=== PATIENT | male | born 1960 | race Caucasian/White ===

== ENCOUNTER 2023-01-18 11:01 | Inpatient (IN) | payer OTHER ==
[2023-01-18] MEDS ORDERED: VANCOMYCIN IV PER PHARMACY 1 EACH MISC MISCELLANE PRN (11:33)
[2023-01-18] MEDS ORDERED: SODIUM CHLORIDE 0.9% 1,000 ML IV STA (11:34)
[2023-01-18] MEDS ORDERED: HYDROmorphone 0.5 MG/0.5 ML SYRINGE IVP STA (11:34)
[2023-01-18] MEDS ORDERED: KETOROLAC 15 MG/ML 1 ML VIAL IVP STA (11:34)
[2023-01-18] MEDS ORDERED: CEFEPIME 2 GM in SODIUM CHLORIDE 0.9% 100 ML IVPB SCH (12:00)
[2023-01-18] MEDS ORDERED: VANCOMYCIN 1,250 MG in SODIUM CHLORIDE 0.9% 250 ML IVPB ONE (12:00)
[2023-01-18 12:20] LABS: HCT 31.5 % (39.0-53.0); HGB 10.6 gm/dL (13.0-17.5); MCH 26.1 pg (25.0-35.0); MCHC 33.8 g/dL (31.0-37.0); MCV 77.1 fL (80.0-100.0); Mean Platelet Volume 6.9; Microcytosis Slight; Platelet Count 387 k/uL (150-450); RBC 4.08 m/uL (4.30-5.90); RDW 14.6 % (11.5-15.5); WBC 26.1 k/uL (3.8-10.6)
--- NOTE | 2023-01-18 12:20 | ED ---
Extremity Problem HPI - General Chief complaint: Extremity Injury, Lower Stated complaint: Left leg pain Time Seen by Provider: 01/18/23 11:18 Source: patient, RN notes reviewed Mode of arrival: wheelchair Limitations: no limitations - History of Present Illness Initial comments: This is a 62-year-old male who presents to the emergency department for left leg pain and swelling. Patient reports increasing pain and redness to the left leg, starting in the knee, for about 1.5 weeks. On 01/16 he went to [facility]. States that he was found to have a very elevated white blood cell count and very elevated inflammatory markers. He was advised that he should be transferred to another facility for admission and IV antibiotics. However, he w anted to try this on an outpatient basis first. He was started on Keflex and clindamycin, and has taken about 1.5 doses of these, however this continues to get worse and he is now having severe pain and drainage. States that he has had blisters develop on the knee that are now opening up and draining. Denies any fevers or chills. MD Complaint: extremity pain, extremity swelling - Related Data Home Medications Medication Instructions Recorded Confirmed Cephalexin [Keflex] 500 mg PO Q6H 01/18/23 01/18/23 carvediloL [Coreg] 12.5 mg PO BID 01/18/23 01/18/23 clindamycin HCL 300 mg PO Q6H 01/18/23 01/18/23 lisinopriL [Zestril] 20 mg PO DAILY 01/18/23 01/18/23 Allergies Allergy/AdvReac Type Severity Reaction Status Date / Time Sulfa (Sulfonamide Allergy Dyspnea Verified 01/18/23 13:45 Antibiotics) Review of Systems ROS Statement: Those systems with pertinent positive or pertinent negative responses have been documented in the HPI. ROS Other: All systems not noted in ROS Statement are negative. Past Medical History Past Medical History: CVA/TIA, Hypertension History of Any Multi-Drug Resistant Organisms: MRSA Additional Past Surgical History / Comment(s): torn acl left. Past Psychological History: No Psychological Hx Reported Smoking Status: Current every day smoker Past Alcohol Use History: None Reported Past Drug Use History: Marijuana General Exam Limitations: no limitations General appearance: alert, in no apparent distress Head exam: Present: atraumatic, normocephalic, normal inspection Respiratory exam: Present: normal lung sounds bilaterally. Absent: respiratory distress, wheezes, rales, rhonchi, stridor Cardiovascular Exam: Present: regular rate, normal rhythm, normal heart sounds. Absent: systolic murmur, diastolic murmur, rubs, gallop, clicks Extremities exam: Present: other (Diffuse erythema, tenderness, and swelling from the left knee spreading distally. There are several blisters over the left knee, some of which have opened up and started draining. Full ROM.) Neurological exam: Present: alert, oriented X3, CN II-XII intact Psychiatric exam: Present: normal affect, normal mood Skin exam: Present: warm, dry, intact, normal color. Absent: rash Course Vital Signs 01/18/23 01/18/23 01/18/23 11:08 13:11 13:13 Temperature 98 F Pulse Rate 80 93 Pulse Rate [ Right Pulse Oximetery] Respiratory 18 18 Rate Blood Pressure 129/66 109/76 Blood Pressure [Right Arm Supine] O2 Sat by Pulse 98 97 98 Oximetry 01/18/23 01/18/23 01/18/23 13:20 13:28 13:30 Temperature Pulse Rate 135 H 165 H 141 H Pulse Rate [ Right Pulse Oximetery] Respiratory 16 18 16 Rate Blood Pressure 109/76 110/72 109/76 Blood Pressure [Right Arm Supine] O2 Sat by Pulse 96 98 84 L Oximetry 01/18/23 01/18/23 01/18/23 13:40 13:50 14:00 Temperature Pulse Rate 144 H 149 H 129 H Pulse Rate [ Right Pulse Oximetery] Respiratory 18 16 18 Rate Blood Pressure 99/71 99/71 115/79 Blood Pressure [Right Arm Supine] O2 Sat by Pulse 83 L Oximetry 01/18/23 01/18/23 01/18/23 14:10 14:20 14:30 Temperature Pulse Rate 174 H 168 H 166 H Pulse Rate [ Right Pulse Oximetery] Respiratory 18 18 16 Rate Blood Pressure 138/83 129/80 129/80 Blood Pressure [Right Arm Supine] O2 Sat by Pulse 85 L 93 L 100 Oximetry 01/18/23 01/18/23 01/18/23 14:40 14:50 15:00 Temperature Pulse Rate 145 H 135 H 128 H Pulse Rate [ Right Pulse Oximetery] Respiratory 18 16 16 Rate Blood Pressure 138/79 138/79 Blood Pressure [Right Arm Supine] O2 Sat by Pulse 99 99 100 Oximetry 01/18/23 01/18/23 16:00 16:05 Temperature 97.6 F Pulse Rate 130 H Pulse Rate [ 110 H Right Pulse Oximetery] Respiratory 18 17 Rate Blood Pressure 127/68 Blood Pressure 106/85 [Right Arm Supine] O2 Sat by Pulse 99 99 Oximetry Medical Decision Making - Medical Decision Making This is a 62-year-old male who presents to the emergency department for left leg pain. Was pt. sent in by a medical professional or institution? @ -No Did you speak to anyone other than the patient for history? @ -No Did you review nursing and triage notes? @ -Yes, and I agree, it is accurate with regards to the patient's symptoms. Were old charts reviewed? @ -Yes, records from [facility] on 01/16 indicating that they attempted an arthrocentesis, but were unsuccessful despite multiple attempts. Differential Diagnosis? @ -Differential Leg Pain: Leg fracture, leg sprain, DVT, PVD, arterial insufficiency, iliac artery aneurysm, cellulitis, compartment syndrome, tendinopathy, nerve entrapment, piriformis syndrome, osteoarthritis, rhabdomyolysis, myositis, cramping from an electrolyte imbalance, this is not meant to be an all inclusive list. EKG interpreted by me (3pts min.)? @ -EKG interpreted by me demonstrating the following: Atrial fibrillation with rapid ventricular response. Ventricular rate 151 bpm, QRS duration 158 ms, QTC 421 ms. X-rays interpreted by me (1pt min.)? @ -X-ray of the left knee and tib-fib obtained. My interpretation identifies soft tissue swelling. CT interpreted by me (1pt min.)? @ -Not obtained U/S interpreted by me (1pt. min.)? @ -Not obtained What testing was considered but not performed? (CT, X-rays, U/S, labs)? Why? @ -None What meds were considered but not given? Why? @ -None Did you discuss the management of the patient with other professionals? @ -Yes, Dr. Jerez, who accepts the patient for admission. Did you reconcile home meds? @ -Yes Was smoking cessation discussed for >3mins.? @ -I discussed smoking cessation for greater than 3 minutes. The risk of smoking were discussed with the patient including but not limited to risks of cancer, stroke, coronary artery disease and COPD. Also discussed with patient were multiple methods of quitting smoking. Lastly we discussed the financial cost of smoking. Was critical care preformed (if so, how long)? @ -Yes, >35 minutes Were there social determinants of health that impacted care today? How? (Homelessness, low income, unemployed, alcoholism, drug addiction, transportation, low edu. Level, literacy, decrease access to med. care, group home, rehab)? @ -No Was there de-escalation of care discussed even if they declined? (Discuss DNR or withdrawal of care, Hospice)? @ -No What co-morbidities impacted this encounter? (DM, HTN, Smoking, COPD, CAD, Cancer, CVA, Hep., AIDS, mental health diagnosis, sleep apnea, morbid obesity)? @ -HTN, smoking Was patient admitted / discharged? @ -Admitted. Lab work obtained revealing leukocytosis with a white blood cell count of 26.1. CRP elevated at 34.9. X-ray of the left knee and tib-fib obtained revealing soft tissue swelling without any subcutaneous gas formation. Patient did meet septic criteria at 1311 when his heart rate reached 93 beats per minute. He was given a liter bolus of IV fluids per 30-40 mL/kg requirement and started on maintenance fluids at 130 mL/hr. Blood and wound cultures were obtained and the patient was started on IV vancomycin and cefepime. While hooked up to the resident doctor, he started to become tachycardic, with heart rate averaging in in the 140-160s. EKG was obtained and the patient was found to be in atrial fibrillation. Patient has no history of atrial fibrillation. He did not experience any chest pain, palpitations, or shortness of breath. States that he did have a stroke around [id number] but they never determined why. Not currently on any blood thinners. States that he does have a resident doctor implanted, which is simply to monitor his heart rate, however he has not been told of any irregularities associated with this. He was started on a cardizem and heparin drip for the atrial fibrillation with RVR. Patient admitted to medicine for further management of LLE cellulitis, sepsis, and new onset atrial fibrillation. Consults placed for orthopedics, infectious disease, and cardiol ogy. Dr. Andrade did call us to request an arthrocentesis. This was discussed with ED attending, Dr. Brooks. He evaluated the patient and did not feel an area that could be drained. The patient also has overlying wounds which is a contraindication. Patient also exhibited full ROM, making joint involvement less likely. On review of records obtained from [place] on 01/16, they attempted an arthrocentesis, however it was unsuccessful. We thus avoided any procedures at this time and will leave this to the discretion of orthopedics. Undiagnosed new problem with uncertain prognosis? @ -None Drug Therapy requiring intensive monitoring for toxicity (Heparin, Nitro, Insulin, Cardizem)? @ -Cardizem and heparin Were any procedures done? @ -None Diagnosis/symptom? @ -Left lower extremity cellulitis, sepsis, new onset atrial fibrillation Acute, or Chronic, or Acute on Chronic? @ -Acute Uncomplicated (without systemic symptoms) or Complicated (systemic symptoms)? @ -Complicated Side effects of treatment? @ -None Exacerbation, Progression, or Severe Exacerbation] @ -Not applicable Poses a threat to life or bodily function? @ -Yes This case was discussed in detail with the attending ED physician, Dr. Maradiaga. Presentation, findings, and treatment plan discussed in detail as well. - Lab Data Result diagrams: 01/18/23 11:45 01/18/23 11:45 Lab Results 01/18/23 01/18/23 01/18/23 Range/Units 11:45 11:45 11:45 WBC 26.1 H (3.8-10.6) k/uL RBC 4.08 L (4.30-5.90) m/uL Hgb 10.6 L (13.0-17.5) gm/dL Hct 31.5 L (39.0-53.0) % MCV 77.1 L (80.0-100.0) fL MCH 26.1 (25.0-35.0) pg MCHC 33.8 (31.0-37.0) g/dL RDW 14.6 (11.5-15.5) % Plt Count 387 (150-450) k/uL MPV 6.9 Neutrophils % (Manual) 89 % Band Neuts % (Manual) 1 % Lymphocytes % (Manual) 4 % Monocytes % (Manual) 4 % Eosinophils % (Manual) 2 % Neutrophils # (Manual) 23.40 H (1.3-7.7) k/uL Lymphocytes # (Manual) 1.04 (1.0-4.8) k/uL Monocytes # (Manual) 1.04 H (0-1.0) k/uL Eosinophils # (Manual) 0.52 (0-0.7) k/uL Nucleated RBCs 0 (0-0) /100 WBC Manual Slide Review Performed Microcytosis Slight Sodium 137 (137-145) mmol/L Potassium 3.3 L (3.5-5.1) mmol/L Chloride 106 (98-107) mmol/L Carbon Dioxide 20 L (22-30) mmol/L Anion Gap 11 mmol/L BUN 31 H (9-20) mg/dL Creatinine 1.87 H (0.66-1.25) mg/dL Est GFR (CKD-EPI)AfAm 43 (>60 ml/min/1.73 sqM) Est GFR (CKD-EPI)NonAf 38 (>60 ml/min/1.73 sqM) Glucose 105 H (74-99) mg/dL Plasma Lactic Acid Rj 1.1 (0.7-2.0) mmol/L Calcium 8.2 L (8.4-10.2) mg/dL Total Bilirubin 0.5 (0.2-1.3) mg/dL AST 24 (17-59) U/L ALT 29 (4-49) U/L Alkaline Phosphatase 171 H (38-126) U/L C-Reactive Protein 34.9 H (<1.0) mg/dL Total Protein 4.9 L (6.3-8.2) g/dL Albumin 2.6 L (3.5-5.0) g/dL TSH (0.465-4.680) mIU/L 01/18/23 Range/Units 11:45 WBC (3.8-10.6) k/uL RBC (4.30-5.90) m/uL Hgb (13.0-17.5) gm/dL Hct (39.0-53.0) % MCV (80.0-100.0) fL MCH (25.0-35.0) pg MCHC (31.0-37.0) g/dL RDW (11.5-15.5) % Plt Count (150-450) k/uL MPV Neutrophils % (Manual) % Band Neuts % (Manual) % Lymphocytes % (Manual) % Monocytes % (Manual) % Eosinophils % (Manual) % Neutrophils # (Manual) (1.3-7.7) k/uL Lymphocytes # (Manual) (1.0-4.8) k/uL Monocytes # (Manual) (0-1.0) k/uL Eosinophils # (Manual) (0-0.7) k/uL Nucleated RBCs (0-0) /100 WBC Manual Slide Review Microcytosis Sodium (137-145) mmol/L Potassium (3.5-5.1) mmol/L Chloride (98-107) mmol/L Carbon Dioxide (22-30) mmol/L Anion Gap mmol/L BUN (9-20) mg/dL Creatinine (0.66-1.25) mg/dL Est GFR (CKD-EPI)AfAm (>60 ml/min/1.73 sqM) Est GFR (CKD-EPI)NonAf (>60 ml/min/1.73 sqM) Glucose (74-99) mg/dL Plasma Lactic Acid Rj (0.7-2.0) mmol/L Calcium (8.4-10.2) mg/dL Total Bilirubin (0.2-1.3) mg/dL AST (17-59) U/L ALT (4-49) U/L Alkaline Phosphatase (38-126) U/L C-Reactive Protein (<1.0) mg/dL Total Protein (6.3-8.2) g/dL Albumin (3.5-5.0) g/dL TSH 1.360 (0.465-4.680) mIU/L - Radiology Data Radiology results: report reviewed, image reviewed Disposition Clinical Impression: Left leg cellulitis, Sepsis, New onset atrial fibrillation, Nicotine dependence Disposition: ADMITTED IP TO THIS HOSP
[2023-01-18 12:28] LABS: ALT 29 U/L (4-49); AST 24 U/L (17-59); African American GFR (CKD) 43 (>60 ml/min/1.73 sqM); Albumin 2.6 g/dL (3.5-5.0); Alkaline Phosphatase 171 U/L (38-126); Anion Gap 11 mmol/L; Blood Urea Nitrogen 31 mg/dL (9-20); Calcium 8.2 mg/dL (8.4-10.2); Carbon Dioxide 20 mmol/L (22-30); Chloride 106 mmol/L (98-107); Glucose 105 mg/dL (74-99); Non-African American GFR(CKD) 38 (>60 ml/min/1.73 sqM); Potassium 3.3 mmol/L (3.5-5.1); Sodium 137 mmol/L (137-145); Total Bilirubin 0.5 mg/dL (0.2-1.3); Total Protein 4.9 g/dL (6.3-8.2)
--- NOTE | 2023-01-18 12:45 | XR ---
EXAMINATION TYPE: XR tibia fibula LT, XR knee complete LT DATE OF EXAM: 01/18/2023 12:30 PM CLINICAL INDICATION:Male, 62 years old with history of Pain, redness, swelling; COMPARISON: None TECHNIQUE: XR tibia fibula LT, XR knee complete LT; was examined in AP and lateral projections. An a dditional oblique view of the knee. FINDINGS: No evidence of any acute osseous pathology or joint dislocation. Severe degeneration change s of the knee with joint space narrowing with deformity to the medial femoral condyle and tibial plat eau. There is osteophyte formation. There is soft tissue edema in the prepatellar space. IMPRESSION: 1. No evidence of acute fracture. 2. Soft tissue swelling or prepatellar space of the correlate for cellulitis. 3. Severe end-stage left knee osteophytosis.
[2023-01-18 13:08] LABS: C Reactive Protein 34.9 mg/dL (<1.0)
[2023-01-18 13:19] LABS: Band Neutrophils % 1 %; Eosinophils # (M) 0.52 k/uL (0-0.7); Lymphocytes # (M) 1.04 k/uL (1.0-4.8); Monocytes # (M) 1.04 k/uL (0-1.0); Neutrophils % (M) 89 %; Nucleated Red Blood Cells 0 /100 WBC (0-0); Total Cells Counted 100
[2023-01-18] MEDS ORDERED: DILTIAZEM DRIP BOLUS FROM BAG 1 MG SOLN IV ONE (13:36)
[2023-01-18] MEDS: SODIUM CHLORIDE 0.9% 500 ML 500 ML IV SCH ×2 (13:54→14:38)
[2023-01-18] MEDS: SODIUM CHLORIDE 0.9% 1,000 ML IV SCH ×2 (13:54→21:54)
[2023-01-18] MEDS: DILTIAZEM 125 MG in SODIUM CHLORIDE 0.9% 100 ML IV SCH (13:55)
[2023-01-18] MEDS ORDERED: HEPARIN SODIUM 1,000 UN/ML (10ML VL) IV ONE (13:57)
[2023-01-18] MEDS ORDERED: POTASSIUM CHLORIDE ER 20 MEQ TAB.ER PO STA (13:58)
[2023-01-18 14:12] LABS: INR 0.9 (<1.2); Partial Thromboplastin Time 30.7 sec (22.0-30.0); Prothrombin Time 9.8 sec (10.0-12.5)
[2023-01-18] MEDS ORDERED: ONDANSETRON 4 MG/2 ML VIAL IVP PRN (14:12)
[2023-01-18] MEDS ORDERED: NALOXONE 0.4 MG/ML 1 ML VIAL IV PRN (14:12)
[2023-01-18] MEDS: HEPARIN SOD,PORK IN 0.45% NACL 25,000 UNIT in 0.45% NACL 1 250ML.BAG IV SCH (14:33)
--- NOTE | 2023-01-18 14:41 | P.HPIM ---
History of Present Illness H&P Date: 01/18/23 History of Presenting Illness: Patient is a very pleasant 62-year-old male with a past medical history of hypertension, hyperlipidemia, multiple CVAs with no residual deficits followed by loop recorder placement in 2011, and nicotine dependence. Patient presented to the emergency department secondary to left lower extremity pain, swelling, and concerns of infection. Patient reports initially he began experiencing swelling to his left knee and lower extremity nearly 2 weeks ago and that this slowly but progressively worsened. He reports initially he just passed it off as he knows he has bad arthritis in that knee and is currently under evaluation for a left total knee replacement. Pt's at bedside also reports pt has a history of MRSSA infection in that same knee. Patient states he attempted to make an appointment with his PCP but his appointment was rescheduled because his insurance changed and so did his primary care provider without his knowledge. Patient reports the pain and swelling progressively worsened so he went to [facility] on 01/16/23 and was told that he had a bad infection with an elevated white blood cell count and inflammatory markers and wanted to transfer patient to our facility for admission and IV antibiotics but patient stated he declined and wanted to try treatment at home. Therefore patient was discharged home on clindamycin and Keflex and reports taking medications as prescribed but last night developed worsening discoloration and formation of large blisters. Patient states this morning these blisters began to rupture and have drainage and pain and swelling worsens so he came to our emergency department for evaluation. Patient denied having any fevers, chills, diaphoresis, chest pain, palpitations, shortness of breath, nausea, vomiting, or experiencing any numbness/tingling/weakness in his extremities. Patient denies history of DVT or PE. Patient denies history of atrial fibrillation, having any cardiac history or any stents in his heart. He reports loop recorder was placed secondary to recurrent strokes of unknown cause. Upon arrival to our facility patient's initial set of vitals were as follows blood pressure 129/66, heart rate 80, respiratory rate 18, temp 98.0F, SpO2 of 90% on room air. Shortly after arrival patient became tachycardic and was found to be in new-onset atrial fibrillation with RVR. EKG was completed showing atrial fibrillation with RVR at [address] depression in inferior lateral leads and right bundle branch block upon personal review and interpretation. No previous EKGs available for comparison. Chest x-ray completed negative for acute cardiopulmonary process. Labs completed and reviewed showing microcytic anemia with hemoglobin of 10.6 and severe leukocytosis with left shift with WBC count of 26.1, neutrophils of 23.4, and monocytes of 1.04. Coagulation profile showing low PT of 9.8 and elevated PTT of 30.7. BMP revealing hypokalemia with potassium of 3.3, hypocarbia with bicarb of 20, and elevated renal function with BUN of 31, creatinine 1.87, and GFR of 38 with unknown baseline levels. Liver profile showing elevated alkaline phosphatase of 171. Troponin 0.015. Lactic acid was normal findings at 1.1. CRP was significantly elevated at 34.9 and ESR is still pending. Blood cultures and wound cultures were obtained and sent to lab for analysis. X-rays completed of right knee, tibia, and fibula showing no evidence of acute fracture revealing soft tissue swelling of prepatellar space correlating for cellulitis with severe end-stage left knee osteophytosis. Patient was started given sepsis bolus of 2 L 0.9% normal saline and started on IV antibiotics with vancomycin and cefepime for treatment of sepsis. He was then started on low intensity heparin infusion for anticoagulation for new onset atrial fibrillation with RVR and given a Cardizem bolus followed by Cardizem infusion for ventricular rate control. Patient admitted under our services with consultation to travel physical therapist for atrial fibrillation with RVR, orthopedic surgery secondary to concerns of cellulitis and need for ruling out septic art hritis, and to infectious disease secondary to severe sepsis. Review of systems: Pertinent positives and negatives as discussed in HPI, a complete review of systems was performed and all other systems are negative. Physical exam: Vital signs reviewed and stable. General: Nontoxic, no distress and appears stated age. Derm: Skin warm and dry, normal coloration for ethnicity. Left lower extremity with 3+ edema beginning just above knee extending distally down into left foot, mild erythema surrounding the knee with large blisters and open wounds/blisters, lower extremity appears to have more of a venous discoloration with minimal erythema. Head: Atraumatic, normocephalic and symmetric. Eyes: EOMs intact, no lid lag, and anicteric sclera Mouth: no lip lesions, mucus membranes moist Cardiovascular: Irregularly irregular, systolic murmur, positive posterior tibial pulses bilaterally, and cap refill < 2 seconds. Lungs: Respirations even, regular, and unlabored on room air. Lungs CTA bilaterally, no rhonchi, no rales, no wheezing, and no accessory muscle usage. Abdominal: soft, nontender to palpation, no guarding, no appreciable organomegaly Ext: No gross muscle atrophy, no edema, no contractures. Movement and sensation intact. Patient with limited movement of left knee secondary to pain resulting from swelling and infection. Neuro: Speech clear, face symmetrical and CN II-XII grossly intact with no noted focal neuro deficits Psych: Alert and oriented to person, place, time, and situation. Appropriate and pleasant affect. Assessment and Plan of Care: Atrial fibrillation with RVR, new onset. Likely brought on by sepsis. -Continue anticoagulation with low intensity heparin infusion at 12 units/kg/hr with close monitoring of PTT every 6 hours with a goal therapeutic range of 44- 79 seconds. [id number] score is 3 -Continue Cardizem infusion and patient started on metoprolol 50 mg twice a day. -Cardiology was consulted for new onset atrial fibrillation with RVR. -Order placed for echocardiogram -Telemetry monitoring Severe sepsis Left lower extremity cellulitis, rule out septic arthritis Acute kidney injury Microcytic anemia Severe leukocytosis Hypokalemia -Continue IV antibiotics with vancomycin 1250 mg every 24 hours IVPB. Monitor renal function and vancomycin trough closely for any signs of vancomycin-induced renal toxicity. -Symptomatic care and pain management. -Follow up on blood cultures and wound culture results. -Repeat daily CBC and inflammatory markers to monitor for improvement. -Infectious disease consulted, appreciate recommendations. -Consult placed to orthopedic surgery and discussed case with orthopedic PA. -Obtain a left lower extremity Doppler to also rule out DVT. -Potassium was replaced with 40 mEq K Dur and we will repeat BMP tomorrow to follow-up not only on potassium levels but renal function. -Hold nephrotoxic medications such as lisinopril and Continue with gentle IV fluid hydration with 0.9% normal saline at 100 mL per hour until repeat BMP is completed to monitor for improvement in renal function. Hypertension Hyperlipidemia Previous CVAs Nicotine dependence Lisinopril held secondary to acute kidney injury and carvedilol discontinued. Patient started on metoprolol 50 mg twice a day and to continue current daily dose of aspirin 81 mg each morning. Order placed for nicotine patch 21 mg daily. Recommend smoking cessation. Data and imaging reviewed: -Upon arrival to our facility patient's initial set of vitals were as follows blood pressure 129/66, heart rate 80, respiratory rate 18, temp 98.0F, SpO2 of 90% on room air. Shortly after arrival patient became tachycardic and was found to be in new-onset atrial fibrillation with RVR. -EKG was completed showing atrial fibrillation with RVR at [address] depression in inferior lateral leads and right bundle branch block upon personal review and interpretation. No previous EKGs available for comparison. -Chest x-ray completed negative for acute cardiopulmonary process. -Labs completed and reviewed showing microcytic anemia with hemoglobin of 10.6 and severe leukocytosis with left shift with WBC count of 26.1, neutrophils of 23.4, and monocytes of 1.04. Coagulation profile showing low PT of 9.8 and elevated PTT of 30.7. BMP revealing hypokalemia with potassium of 3.3, hypocarbia with bicarb of 20, and elevated renal function with BUN of 31, creatinine 1.87, and GFR of 38 with unknown baseline levels. Liver profile showing elevated alkaline phosphatase of 171. Troponin 0.015. Lactic acid was normal findings at 1.1. CRP was significantly elevated at 34.9 and ESR is still pending. Blood cultures and wound cultures were obtained and sent to lab for analysis. -X-rays completed of right knee, tibia, and fibula showing no evidence of acute fracture revealing soft tissue swelling of prepatellar space correlating for cellulitis with severe end-stage left knee osteophytosis. The patient is admitted with an anticipated greater than 2 midnight stay for evaluation of sepsis with new onset atrial fibrillation with RVR. CODE STATUS: Full code DVT prophylaxis: Heparin Anticipated discharge date: Clinical course to determine Anticipated discharge place: Clinical course to determine Patient was seen independently by Nurse Practitioner. This document was prepared using [employer] dictation software. Please allow for errors in completions manager while rare they do occur. Past Medical History Past Medical History: CVA/TIA, Hypertension History of Any Multi-Drug Resistant Organisms: MRSA Additional Past Surgical History / Comment(s): torn acl left. Past Psychological History: No Psychological Hx Reported Smoking Status: Current every day smoker Past Alcohol Use History: None Reported Past Drug Use History: Marijuana Medications and Allergies Home Medications Medication Instructions Recorded Confirmed Type Cephalexin [Keflex] 500 mg PO Q6H 01/18/23 01/18/23 History carvediloL [Coreg] 12.5 mg PO BID 01/18/23 01/18/23 History clindamycin HCL 300 mg PO Q6H 01/18/23 01/18/23 History lisinopriL [Zestril] 20 mg PO DAILY 01/18/23 01/18/23 History Allergies Allergy/AdvReac Type Severity Reaction Status Date / Time Sulfa (Sulfonamide Allergy Dyspnea Verified 01/18/23 13:45 Antibiotics) Physical Exam Vitals: Vital Signs Temp Pulse Resp BP Pulse Ox 01/18/23 13:28 165 H 18 110/72 98 01/18/23 13:11 93 18 109/76 97 01/18/23 11:08 98 F 80 18 129/66 98 Intake and Output 01/17/23 01/18/23 01/18/23 22:59 06:59 14:59 Other: Weight 72.575 kg Results CBC & Chem 7: 01/18/23 11:45 01/18/23 11:45 Labs: Abnormal Lab Results - Last 24 Hours (Table) 01/18/23 01/18/23 01/18/23 Range/Units 11:45 11:45 13:41 WBC 26.1 H (3.8-10.6) k/uL RBC 4.08 L (4.30-5.90) m/uL Hgb 10.6 L (13.0-17.5) gm/dL Hct 31.5 L (39.0-53.0) % MCV 77.1 L (80.0-100.0) fL Neutrophils # (Manual) 23.40 H (1.3-7.7) k/uL Monocytes # (Manual) 1.04 H (0-1.0) k/uL PT 9.8 L (10.0-12.5) sec APTT 30.7 H (22.0-30.0) sec Potassium 3.3 L (3.5-5.1) mmol/L Carbon Dioxide 20 L (22-30) mmol/L BUN 31 H (9-20) mg/dL Creatinine 1.87 H (0.66-1.25) mg/dL Glucose 105 H (74-99) mg/dL Calcium 8.2 L (8.4-10.2) mg/dL Alkaline Phosphatase 171 H (38-126) U/L C-Reactive Protein 34.9 H (<1.0) mg/dL Total Protein 4.9 L (6.3-8.2) g/dL Albumin 2.6 L (3.5-5.0) g/dL
--- NOTE | 2023-01-18 15:13 | XR ---
EXAMINATION TYPE: XR chest 2V DATE OF EXAM: 01/18/2023 2:55 PM CLINICAL INDICATION:Male, 62 years old with history of dysrhythmia; COMPARISON: None TECHNIQUE: XR chest 2V Frontal and lateral views of the chest. FINDINGS: Lungs/Pleura: There is no evidence of pleural effusion, focal consolidation, or pneumothorax. Pulmonary vascularity: Unremarkable. Heart/mediastinum: Cardiomediastinal silhouette is unremarkable. A loop recorder projects over the le ft thorax over the heart. Musculoskeletal: No acute osseous pathology. Other findings: None IMPRESSION: No acute cardiopulmonary disease/process.
[2023-01-18] MEDS: NICOTINE 21MG/24HR PATCH TRANSDERM SCH (17:11)
[2023-01-18] MEDS: METOPROLOL TARTRATE 50 MG TAB PO SCH ×2 (17:11→20:27)
[2023-01-18] MEDS ORDERED: carvediloL 12.5 MG TAB PO SCH (17:30)
--- NOTE | 2023-01-18 18:07 | US ---
EXAMINATION TYPE: US venous doppler duplex LE LT DATE OF EXAM: 01/18/2023 5:52 PM COMPARISON: NONE CLINICAL INDICATION: Male, 62 years old with history of swelling LLE x 2 weeks, r/o DVT; cellulitis w ith LLE swelling, no h/o dvt SIDE PERFORMED: Left TECHNIQUE: The lower extremity deep venous system is examined utilizing real time linear array sonog dotty with graded compression, doppler sonography and color-flow sonography. VESSELS IMAGED: Common Femoral Vein Deep Femoral Vein Greater Saphenous Vein * Femoral Vein Popliteal Vein Small Saphenous Vein * Proximal Calf Veins (* superficial vessels) Left Leg: Grayscale, color doppler, spectral doppler imaging performed of the deep veins of the lowe r extremities. There is normal flow, compressibility, vascular waveforms. Negative for DVT IMPRESSION: No evidence of left lower extremity DVT.
[2023-01-18] MEDS: MORPHINE SULFATE 4 MG/ML SYRINGE IV PRN (20:26)
[2023-01-19] MEDS: CEFEPIME 2 GM in SODIUM CHLORIDE 0.9% 100 ML IVPB SCH ×3 (01:18→23:34)
[2023-01-19] MEDS: HYDROcodone/APAP 5-325MG 1 EACH TAB PO PRN ×4 (01:18→17:33)
[2023-01-19] MEDS: HEPARIN SODIUM 1,000 UN/ML (10ML VL) IV PRN ×2 (02:39→22:40)
[2023-01-19] MEDS: DILTIAZEM 125 MG in SODIUM CHLORIDE 0.9% 100 ML IV SCH (05:44)
[2023-01-19 08:40] LABS: HCT 27.6 % (39.0-53.0); HGB 9.2 gm/dL (13.0-17.5); Hypochromasia Slight; MCH 26.4 pg (25.0-35.0); MCHC 33.1 g/dL (31.0-37.0); MCV 79.8 fL (80.0-100.0); Mean Platelet Volume 7.3; Platelet Count 393 k/uL (150-450); RBC 3.46 m/uL (4.30-5.90); WBC 20.2 k/uL (3.8-10.6)
[2023-01-19 08:55] LABS: ALT 27 U/L (4-49); AST 23 U/L (17-59); African American GFR (CKD) 49 (>60 ml/min/1.73 sqM); Albumin 2.1 g/dL (3.5-5.0); Alkaline Phosphatase 157 U/L (38-126); Anion Gap 9 mmol/L; Blood Urea Nitrogen 25 mg/dL (9-20); Calcium 7.5 mg/dL (8.4-10.2); Carbon Dioxide 15 mmol/L (22-30); Chloride 114 mmol/L (98-107); Glucose 109 mg/dL (74-99); Non-African American GFR(CKD) 42 (>60 ml/min/1.73 sqM); Potassium 3.8 mmol/L (3.5-5.1); Sodium 138 mmol/L (137-145); Total Bilirubin 0.4 mg/dL (0.2-1.3); Total Protein 4.1 g/dL (6.3-8.2)
[2023-01-19] MEDS ORDERED: lisinopriL 20 MG TAB PO SCH (09:00)
[2023-01-19] MEDS: METOPROLOL TARTRATE 50 MG TAB PO SCH ×2 (09:41→22:10)
[2023-01-19] MEDS: MORPHINE SULFATE 4 MG/ML SYRINGE IV PRN ×3 (09:41→22:09)
[2023-01-19] MEDS: NICOTINE 21MG/24HR PATCH TRANSDERM SCH (09:41)
[2023-01-19] MEDS: ASPIRIN 81 MG PO SCH (09:41)
[2023-01-19] MEDS: VANCOMYCIN 1,250 MG in SODIUM CHLORIDE 0.9% 250 ML IVPB SCH (09:49)
--- NOTE | 2023-01-19 10:03 | P.CNOR ---
History of Present Illness - [facility] Consult date: 01/19/23 Consult reason: joint pain (Left knee.) History of present illness: This is a 62-year-old male with recent history of increased swelling and pain to the left knee. He states that he has had this issue in the past but has related the pain due to his severe arthritis in his left knee. He says he has had a MRSA infection in that knee in the past. He has history of knee surgeries when he was in high school for meniscal tears. He states that he has been evaluated recently for knee replacement. He states that over a week ago he began having increased redness and swelling to the anterior aspect of the knee which extended down into the lower leg. He was evaluated at [facility] on 01/16/2023 and he was transferred here for further evaluation and IV antibiotics. He was found to have a white blood cell count of 26.1 with elevated sed rate and CRP. He is admitted for IV antibiotics. We're consulted for orthopedic evaluation. Past Medical History Past Medical History: CVA/TIA, Hypertension History of Any Multi-Drug Resistant Organisms: MRSA Year Discovered:: 2019 MDRO Source:: left knee Additional Past Surgical History / Comment(s): torn acl left. Past Anesthesia/Blood Transfusion Reactions: No Reported Reaction Past Psychological History: No Psychological Hx Reported Smoking Status: Current every day smoker Past Alcohol Use History: None Reported Past Drug Use History: Marijuana Medications and Allergies Home Medications Medication Instructions Recorded Confirmed Type Cephalexin [Keflex] 500 mg PO Q6H 01/18/23 01/18/23 History carvediloL [Coreg] 12.5 mg PO BID 01/18/23 01/18/23 History clindamycin HCL 300 mg PO Q6H 01/18/23 01/18/23 History lisinopriL [Zestril] 20 mg PO DAILY 01/18/23 01/18/23 History Allergies Allergy/AdvReac Type Severity Reaction Status Date / Time Sulfa (Sulfonamide Allergy Dyspnea Verified 01/18/23 13:45 Antibiotics) Physical Examination This is a pleasant 62-year-old male in no acute distress. He is alert and oriented 3. Exam of the lower extremities reveals erythema and diffuse edema to the anterior aspect of the knee extending down into the lower leg. There is a large ruptured blister about the medial aspect of the anterior knee/lower leg. There is another blister on the lateral aspect of the lower leg which is intact. There is no obvious joint effusion. There is diffuse edema to the anterior knee and upper lower leg. I do not feel any real fluctuant areas of fluid collection. He is able to flex his knee to about 45 actively. He has full extension. He has full foot and ankle motion without difficulty. Neurovascular status to the lower extremity is intact. Results X-rays of the right knee and lower leg reveal moderate to severe degenerative changes to the knee with [id number] contact in all 3 compartments. No acute fractures identified. - Labs Labs: Abnormal Lab Results - Last 24 Hours (Table) 01/18/23 01/18/23 01/18/23 Range/Units 11:45 11:45 13:41 WBC 26.1 H (3.8-10.6) k/uL RBC 4.08 L (4.30-5.90) m/uL Hgb 10.6 L (13.0-17.5) gm/dL Hct 31.5 L (39.0-53.0) % MCV 77.1 L (80.0-100.0) fL Neutrophils # (Manual) 23.40 H (1.3-7.7) k/uL Monocytes # (Manual) 1.04 H (0-1.0) k/uL PT 9.8 L (10.0-12.5) sec APTT 30.7 H (22.0-30.0) sec Potassium 3.3 L (3.5-5.1) mmol/L Chloride (98-107) mmol/L Carbon Dioxide 20 L (22-30) mmol/L BUN 31 H (9-20) mg/dL Creatinine 1.87 H (0.66-1.25) mg/dL Glucose 105 H (74-99) mg/dL Calcium 8.2 L (8.4-10.2) mg/dL Alkaline Phosphatase 171 H (38-126) U/L C-Reactive Protein 34.9 H (<1.0) mg/dL Total Protein 4.9 L (6.3-8.2) g/dL Albumin 2.6 L (3.5-5.0) g/dL 01/18/23 01/19/23 01/19/23 Range/Units 23:50 07:52 07:52 WBC 20.2 H (3.8-10.6) k/uL RBC 3.46 L (4.30-5.90) m/uL Hgb 9.2 L (13.0-17.5) gm/dL Hct 27.6 L (39.0-53.0) % MCV 79.8 L (80.0-100.0) fL Neutrophils # (Manual) (1.3-7.7) k/uL Monocytes # (Manual) (0-1.0) k/uL PT (10.0-12.5) sec APTT 31.6 H (22.0-30.0) sec Potassium (3.5-5.1) mmol/L Chloride 114 H (98-107) mmol/L Carbon Dioxide 15 L (22-30) mmol/L BUN 25 H (9-20) mg/dL Creatinine 1.70 H (0.66-1.25) mg/dL Glucose 109 H (74-99) mg/dL Calcium 7.5 L (8.4-10.2) mg/dL Alkaline Phosphatase 157 H (38-126) U/L C-Reactive Protein (<1.0) mg/dL Total Protein 4.1 L (6.3-8.2) g/dL Albumin 2.1 L (3.5-5.0) g/dL H & H 01/18/23 01/19/23 Range/Units 11:45 07:52 Hgb 10.6 L 9.2 L (13.0-17.5) gm/dL Hct 31.5 L 27.6 L (39.0-53.0) % Coagulation 01/18/23 Range/Units 13:41 INR 0.9 (<1.2) Result Diagrams: 01/19/23 07:52 01/19/23 07:52 Assessment and Plan (1) Left leg cellulitis Current Visit: Yes Status: Acute Code(s): L03.116 - CELLULITIS OF LEFT LOWER LIMB SNOMED Code(s): 70119828610751741 (2) New onset atrial fibrillation Current Visit: Yes Status: Acute Code(s): I48.91 - UNSPECIFIED ATRIAL FIBRILLATION SNOMED Code(s): 86810076 Plan: The clinical and x-ray findings are discussed with the patient. It is recommend ed he continue on the IV antibiotics. I will add moist heat to the leg. We are awaiting infectious disease evaluation for antibiotic recommendations and wound care. At this time we do not anticipate the need for surgical intervention. We will continue to follow.
[2023-01-19 11:46] LABS: C Reactive Protein 25.1 mg/dL (<1.0)
[2023-01-19 11:48] LABS: Erythrocyte Sedimentation Rate 96 mm/Hr (0-20)
--- NOTE | 2023-01-19 11:48 | CONS ---
CONSULTATION HISTORY OF PRESENT ILLNESS: Vitor is a 62-year-old gentleman, who presented to hospital primarily with left leg swelling. He has history of hypertension, dyslipidemia, prior CVAs, and smoking. He has also had left total knee replacement complicated by MRSA infection and recurrent episodes of knee swelling and left leg swelling in the past. Over the last several days, he has been noticing increasing swelling of the left leg with bullous formation and weeping. He apparently had been treated. He was evaluated at [facility], told that he had an infection, elevated white cell count, and subsequently had been transferred to [facility] for intravenous antibiotics. The patient initially was being treated with clindamycin and Keflex and because of worsening symptoms and large blisters, came back to hospital and is being admitted. The patient has a loop recorder secondary to recurrent strokes of unclear etiology. On his initial arrival, his EKG showed atrial fibrillation with rapid ventricular rate, for which Cardiology had been consulted. At the time of my evaluation, he appears comfortable at rest and is free of any new symptoms. His predominant symptom is the left leg swelling. He had a venous Doppler study of the left leg that is negative for DVT. The patient is currently on intravenous Cardizem and IV heparin for the new-onset atrial fibrillation. His EKG shows right bundle-branch block, left anterior fascicular block, and atrial fibrillation with poorly-controlled ventricular rate. I will obtain a 2D echo to evaluate his LV function. The plan at this stage is rate control and anticoagulation, and after adequate anticoagulation, we may attempt cardioversion on him. The cellulitis and leg swelling are currently being managed by the primary care physician, and Orthopedics is involved in his care. This is not due to congestive heart failure. LABORATORY DATA: Show that BUN and creatinine are elevated. Troponin is negative. White cell count is 20 with a platelet count of 393. PAST MEDICAL HISTORY: Significant for hypertension, recurrent episodes of CVA, and left leg swelling. MEDICATIONS AT HOME: Included: 1. Clindamycin. 2. Carvedilol. 3. Keflex. 4. Lisinopril. ALLERGIC: Sulfa. FAMILY HISTORY: Negative for premature coronary artery disease. SOCIAL HISTORY: Significant for smoking. There is no history of EtOH abuse or drug abuse. REVIEW OF SYSTEMS: HEENT: Unremarkable. CARDIAC: As described above. RESPIRATORY: Negative. GI: Negative. GENITOURINARY: Significant for renal insufficiency. PSYCHOSOCIAL: Negative. DERM: As described above. ENDOCRINE: Negative. ID: As described above. Rest of the system review is not relevant. PHYSICAL EXAMINATION: GENERAL: Comfortable at rest. Heart rate is 98 beats per minute. Blood pressure is 150/90, respiratory rate is 18. NECK: There is no jugular venous distention. Carotid upstroke is diminished. There is no bruit chest exam reveals good air entry bilaterally. HEART: Reveals first and second heart sounds, irregular rhythm, and a systolic murmur at the apex. ABDOMEN: Soft. EXTREMITIES: The left leg is swollen. There are vesicles and cellulitis. Foot pulses are dorsalis pedis pulses palpable. White cell count is elevated. EKG shows atrial fibrillation with poorly-controlled ventricular rate and right bundle-branch block, and left anterior fascicular block. ASSESSMENT: 1. New onset atrial fibrillation with poorly-controlled ventricular rate. 2. Cellulitis of the left leg. PLAN: I will continue the patient on IV heparin and Cardizem. Obtain a 2D echo. Once the heart rate is well controlled, stop the Cardizem and switch him to oral beta blockers and calcium channel blockers as needed. We will consider cardioversion after adequate anticoagulation. Please find out whether his insurance covers Eliquis. If it does transition him into Eliquis. MMODL / IJN: [id number] /
[2023-01-19] MEDS ORDERED: METOPROLOL TARTRATE 50 MG TAB PO STA (12:54)
--- NOTE | 2023-01-19 13:05 | P.PN ---
Subjective Progress Note Date: 01/19/23 Hospital Course: Patient is a very pleasant 62-year-old male with a past medical history of hypertension, hyperlipidemia, multiple CVAs with no residual deficits followed by loop recorder placement in 2011, and nicotine dependence. Patient presented to the emergency department secondary to left lower extremity pain, swelling, and concerns of infection. Patient reports initially he began experiencing swelling to his left knee and lower extremity nearly 2 weeks ago and that this slowly but progressively worsened. He reports initially he just passed it off as he knows he has bad arthritis in that knee and is currently under evaluation for a left total knee replacement. Pt's at bedside also reports pt has a history of MRSSA infection in that same knee. Patient states he attempted to make an appointment with his PCP but his appointment was rescheduled because his insurance changed and so did his primary care provider without his knowledge. Patient reports the pain and swelling progressively worsened so he went to [facility] on 01/16/23 and was told that he had a bad infection with an elevated white blood cell count and inflammatory markers and wanted to transfer patient to our facility for admission and IV antibiotics but patient stated he declined and wanted to try treatment at home. Therefore patient was discharged home on clindamycin and Keflex and reports taking medications as prescribed but last night developed worsening discoloration and formation of large blisters. Patient states this morning these blisters began to rupture and have drainage and pain and swelling worsens so he came to our emergency department for evaluation. Patient denied having any fevers, chills, diaphoresis, chest pain, palpitations, shortness of breath, nausea, vomiting, or experiencing any numbness/tingling/weakness in his extremities. Patient denies history of DVT or PE. Patient denies history of atrial fibrillation, having any cardiac history or any stents in his heart. He reports loop recorder was placed secondary to recurrent strokes of unknown cause. Upon arrival to our facility patient's initial set of vitals were as follows blood pressure 129/66, heart rate 80, respiratory rate 18, temp 98.0F, SpO2 of 90% on room air. Shortly after arrival patient became tachycardic and was found to be in new-onset atrial fibrillation with RVR. EKG was completed showing atrial fibrillation with RVR at [address] depression in inferior lateral leads and right bundle branch block upon personal review and interpretation. No previous EKGs available for comparison. Chest x-ray completed negative for acute cardiopulmonary process. Labs completed and reviewed showing microcytic anemia with hemoglobin of 10.6 and severe leukocytosis with left shift with WBC count of 26.1, neutrophils of 23.4, and monocytes of 1.04. Coagulation profile showing low PT of 9.8 and elevated PTT of 30.7. BMP revealing hypokalemia with potassium of 3.3, hypocarbia with bicarb of 20, and elevated renal function with BUN of 31, creatinine 1.87, and GFR of 38 with unknown baseline levels. Liver profile showing elevated alkaline phosphatase of 171. Troponin 0.015. Lactic acid was normal findings at 1.1. CRP was significantly elevated at 34.9 and ESR is still pending. Blood cultures and wound cultures were obtained and sent to lab for analysis. X-rays completed of right knee, tibia, and fibula showing no evidence of acute fracture revealing soft tissue swelling of prepatellar space correlating for cellulitis with severe end-stage left knee osteophytosis. Patient was started given sepsis bolus of 2 L 0.9% normal saline and started on IV antibiotics with vancomycin and cefepime for treatment of sepsis. He was then started on low intensity heparin infusion for anticoagulation for new onset atrial fibrillation with RVR and given a Cardizem bolus followed by Cardizem infusion for ventricular rate control. Patient admitted under our services with consultation to level vial inspector and tester for atrial fibrillation with RVR, orthopedic surgery secondary to concerns of cellulitis and need for ruling out septic arthritis, and to infectious disease secondary to severe sepsis. Physical exam: Vital signs reviewed and stable. General: Nontoxic, no distress and appears stated age. Derm: Skin warm and dry, normal coloration for ethnicity. Left lower extremity with 3+ edema beginning just above knee extending distally down into left foot, mild erythema surrounding the knee with large blisters and open wounds/blisters, lower extremity appears to have more of a venous discoloration with minimal erythema but persistent edema extending down into the foot. Head: Atraumatic, normocephalic and symmetric. Eyes: EOMs intact, no lid lag, and anicteric sclera Mouth: no lip lesions, mucus membranes moist Cardiovascular: Irregularly irregular, systolic murmur, positive posterior tibial pulses bilaterally, and cap refill < 2 seconds. Lungs: Respirations even, regular, and unlabored on room air. Lungs CTA bilaterally, no rhonchi, no rales, no wheezing, and no accessory muscle usage. Abdominal: soft, nontender to palpation, no guarding, no appreciable organomegaly Ext: No gross muscle atrophy, no edema, no contractures. Movement and sensation intact. Patient with limited movement of left knee secondary to pain resulting from swelling and infection. Neuro: Speech clear, face symmetrical and CN II-XII grossly intact with no noted focal neuro deficits Psych: Alert and oriented to person, place, time, and situation. Appropriate and pleasant affect. Assessment and Plan of Care: Atrial fibrillation with RVR, new onset. Likely brought on by sepsis. Continues with improved but poorly controlled rate. -Continue anticoagulation with low intensity heparin infusion. Infusion rate increased to 16 units/kg/hr seconstay to subtherapeutic PTT of 28.6 this morning. We will continue close monitoring of PTT every 6 hours with a goal therapeutic range of 44-79 seconds. -[id number] score is 3 -Discussed with patient Will transition him to oral anticoagulant with either Eliqiuis or Xarelto tomorrow morning pending pharmacy verification on which medication is covered via insurance and pricing. -Stopped Cardizem infusion and increased metoprolol to 100 mg twice a day. -Cardiology was consulted for new onset atrial fibrillation with RVR, appreciate recommendations. -Echocardiogram ordered to be completed. -Patient to remain on continuous Telemetry monitoring Severe sepsis Left lower extremity cellulitis Acute kidney injury, improving Microcytic anemia Severe leukocytosis Hypokalemia -Continue IV antibiotics with vancomycin 1250 mg every 24 hours IVPB and cefepime 2 g IVPB every 12 hours. Monitor renal function and vancomycin trough closely for any signs of vancomycin-induced renal toxicity. -Symptomatic care and pain management. -Follow up on blood cultures and wound culture results. -ESR 96 and CRP 34.9. Repeat daily CBC and inflammatory markers to monitor for improvement. -Infectious disease consulted, appreciate recommendations. -Consult placed to orthopedic surgery and discussed case with orthopedic DARWIN sanders and continuation of IV antibiotics. -Venous Doppler left lower extremity was completed and was negative, ruling out DVT. -CBC showing improvement of leukocytosis with WBC count decreasing from previous 26.1 down to 20.2 this morning and microcytic anemia remains stable at 9.2. -Renal function/acute kidney injury is improving with morning labs showing BUN 25, creatinine 1.70, and GFR 42 from previous BUN of 31, creatinine 1.87, GFR of 38. We will continue with gentle IV fluid hydration for an additional 24 hours to further monitor for improvement. -Hypokalemia resolved with repeat potassium of 3.8. -Continue to Hold nephrotoxic medication lisinopril and as stated above we will continue with gentle IV fluid hydration with 0.9% normal saline at 100 mL per hour until repeat BMP is completed tomorrow morning to monitor for improvement in renal function. Hypertension Hyperlipidemia Previous CVAs Nicotine dependence Lisinopril held secondary to acute kidney injury and carvedilol discontinued. Metoprolol increased to100 mg twice a day and pt to continue current daily dose of aspirin 81 mg each morning. Order placed for nicotine patch 21 mg daily. Recommend smoking cessation. Data and imaging reviewed: -Venous Doppler left lower extremity was completed and was negative, ruling out DVT. -Labs completed and reviewed. CBC showing improvement of leukocytosis with WBC count decreasing from previous 26.1 down to 20.2 this morning and microcytic anemia remains stable at 9.2. BMP revealing Renal function/acute kidney injury is improving with morning labs showing BUN 25, creatinine 1.70, and GFR 42 with resolution of Hypokalemia with repeat potassium of 3.8. CODE STATUS: Full code DVT prophylaxis: Heparin Anticipated discharge date: Clinical course to determine Anticipated discharge place: Clinical course to determine Patient was seen independently by Nurse Practitioner. This document was prepared using [employer] dictation software. Please allow for errors in mobile development manager while rare they do occur. Oniel Spencer NP rendered care for this patient independently, reviewed the findings and plan as documented in the note above. I did not physically speak with or examine the patient on this date. Objective - Vital Signs Vital signs: Vital Signs Temp 97.9 F 01/19/23 08:05 Pulse 108 H 01/19/23 08:05 Resp 17 01/19/23 08:05 BP 155/91 01/19/23 08:05 Pulse Ox 98 01/19/23 08:05 FiO2 Intake & Output 01/18/23 01/19/23 01/19/23 18:59 06:59 18:59 Intake Total 180 184.607 180 Output Total 650 Balance 180 -465.393 180 Weight 72.575 kg Intake: Intake, IV Titration 184.607 Amount Diltiazem 125 mg In 79.083 Sodium Chloride 0.9% 100 ml @ 5 MG/HR 5 mls/hr IV .Q24H [facility] Rx#:[id number] Heparin Sod,Pork in 0.45% 105.524 NaCl 25,000 unit In 0.45 % NaCl 1 250ml.bag @ 12 UNITS/KG/HR 8.709 mls/hr IV .Q24H [facility] Rx#: [id number] Oral 180 180 Output: Urine 650 Other: Voiding Method Toilet Urinal - Labs CBC & Chem 7: 01/20/23 09:21 01/20/23 09:21 Labs: Abnormal Lab Results - Last 24 Hours (Table) 01/18/23 01/18/23 01/18/23 Range/Units 11:45 11:45 13:41 WBC 26.1 H (3.8-10.6) k/uL RBC 4.08 L (4.30-5.90) m/uL Hgb 10.6 L (13.0-17.5) gm/dL Hct 31.5 L (39.0-53.0) % MCV 77.1 L (80.0-100.0) fL Neutrophils # (Manual) 23.40 H (1.3-7.7) k/uL Monocytes # (Manual) 1.04 H (0-1.0) k/uL PT 9.8 L (10.0-12.5) sec APTT 30.7 H (22.0-30.0) sec Potassium 3.3 L (3.5-5.1) mmol/L Chloride (98-107) mmol/L Carbon Dioxide 20 L (22-30) mmol/L BUN 31 H (9-20) mg/dL Creatinine 1.87 H (0.66-1.25) mg/dL Glucose 105 H (74-99) mg/dL Calcium 8.2 L (8.4-10.2) mg/dL Alkaline Phosphatase 171 H (38-126) U/L C-Reactive Protein 34.9 H (<1.0) mg/dL Total Protein 4.9 L (6.3-8.2) g/dL Albumin 2.6 L (3.5-5.0) g/dL 01/18/23 01/19/23 01/19/23 Range/Units 23:50 07:52 07:52 WBC 20.2 H (3.8-10.6) k/uL RBC 3.46 L (4.30-5.90) m/uL Hgb 9.2 L (13.0-17.5) gm/dL Hct 27.6 L (39.0-53.0) % MCV 79.8 L (80.0-100.0) fL Neutrophils # (Manual) (1.3-7.7) k/uL Monocytes # (Manual) (0-1.0) k/uL PT (10.0-12.5) sec APTT 31.6 H (22.0-30.0) sec Potassium (3.5-5.1) mmol/L Chloride 114 H (98-107) mmol/L Carbon Dioxide 15 L (22-30) mmol/L BUN 25 H (9-20) mg/dL Creatinine 1.70 H (0.66-1.25) mg/dL Glucose 109 H (74-99) mg/dL Calcium 7.5 L (8.4-10.2) mg/dL Alkaline Phosphatase 157 H (38-126) U/L C-Reactive Protein (<1.0) mg/dL Total Protein 4.1 L (6.3-8.2) g/dL Albumin 2.1 L (3.5-5.0) g/dL
[2023-01-19] MEDS: HEPARIN SOD,PORK IN 0.45% NACL 25,000 UNIT in 0.45% NACL 1 250ML.BAG IV SCH (14:35)
[2023-01-19] MEDS: SODIUM CHLORIDE 0.9% 1,000 ML IV SCH (18:38)
[2023-01-19] MEDS ORDERED: DILTIAZEM DRIP BOLUS FROM BAG 1 MG SOLN IV ONE (23:45)
[2023-01-20] MEDS: DILTIAZEM 125 MG in SODIUM CHLORIDE 0.9% 100 ML IV SCH ×3 (00:42→23:54)
[2023-01-20] MEDS: HYDROcodone/APAP 5-325MG 1 EACH TAB PO PRN (00:54)
[2023-01-20] MEDS: ACETAMINOPHEN TAB 325 MG TAB PO PRN (00:54)
[2023-01-20] MEDS: MORPHINE SULFATE 4 MG/ML SYRINGE IV PRN ×5 (02:47→21:39)
[2023-01-20] MEDS: SODIUM CHLORIDE 0.9% 1,000 ML IV SCH ×2 (02:54→13:01)
--- NOTE | 2023-01-20 07:14 | P.CONS ---
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 patient presenting to the hospital with a left leg pain and swelling patient mention has been having increasing swelling to bilateral extremity especially left leg that has been going on for more than a week patient has been previously evaluated for similar symptoms at the hospital [facility] with the patient was advised admission to the hospital however she refused has been treated with the Keflex and clindamycin patient has taken few doses without any improvement hence he presented to this facility symptom has been mostly increasing swelling and redness to the left lower extremity did have some blisters to the left below the knee area with associated swelling redness and some drainage, patient did have a pain to the left lower extremity more so with the leaking to sharp moderate intensity without any radiation, patient on admission to the hospital was afebrile he did have a white count of 26,000 with a left shift BUN/creatinine has been mildly elevated liver enzymes are normal CRP was 34.9 local culture revealed currently pending blood cultures from which are pending patient did have a venous Doppler that was negative for DVT patient was started on cefepime and vancomycin infectious was consulted for further management of antibiotic therapy Review of Systems Positive point and negatives has been mentioned in the HPI, complete review of systems was performed and all other systems are negative Past Medical History Past Medical History: CVA/TIA, Hypertension History of Any Multi-Drug Resistant Organisms: MRSA Year Discovered:: 2019 MDRO Source:: left knee Additional Past Surgical History / Comment(s): torn acl left. Past Anesthesia/Blood Transfusion Reactions: No Reported Reaction Past Psychological History: No Psychological Hx Reported Smoking Status: Current every day smoker Past Alcohol Use History: None Reported Past Drug Use History: Marijuana Medications and Allergies Home Medications Medication Instructions Recorded Confirmed Type Cephalexin [Keflex] 500 mg PO Q6H 01/18/23 01/18/23 History carvediloL [Coreg] 12.5 mg PO BID 01/18/23 01/18/23 History clindamycin HCL 300 mg PO Q6H 01/18/23 01/18/23 History lisinopriL [Zestril] 20 mg PO DAILY 01/18/23 01/18/23 History Allergies Allergy/AdvReac Type Severity Reaction Status Date / Time Sulfa (Sulfonamide Allergy Dyspnea Verified 01/18/23 13:45 Antibiotics) Physical Exam Vitals: Vital Signs Temp Pulse Pulse Resp BP BP Pulse Ox 01/19/23 11:43 98.3 F 84 17 134/80 96 01/19/23 08:05 97.9 F 108 H 17 155/91 98 01/19/23 08:00 108 H 17 01/19/23 04:00 98.2 F 99 18 146/86 99 01/19/23 01:37 97 18 01/19/23 00:30 98.1 F 97 18 140/93 97 01/18/23 20:15 98.1 F 93 18 144/93 100 01/18/23 16:05 97.6 F 110 H 17 106/85 99 01/18/23 16:00 130 H 18 127/68 99 01/18/23 15:00 128 H 16 138/79 100 01/18/23 14:50 135 H 16 138/79 99 01/18/23 14:40 145 H 18 99 01/18/23 14:30 166 H 16 129/80 100 01/18/23 14:20 168 H 18 129/80 93 L 01/18/23 14:10 174 H 18 138/83 85 L 01/18/23 14:00 129 H 18 115/79 83 L 01/18/23 13:50 149 H 16 99/71 01/18/23 13:40 144 H 18 99/71 Intake and Output 01/18/23 01/19/23 01/19/23 22:59 06:59 14:59 Intake Total 180 184.607 289.586 Output Total 200 450 Balance -20 -265.393 289.586 Intake: Intake, IV Titration 184.607 109.586 Amount Diltiazem 125 mg In 79.083 Sodium Chloride 0.9% 100 ml @ 5 MG/HR 5 mls/hr IV .Q24H [facility] Rx#:[id number] Heparin Sod,Pork in 0.45% 105.524 109.586 NaCl 25,000 unit In 0.45 % NaCl 1 250ml.bag @ 12 UNITS/KG/HR 8.709 mls/hr IV .Q24H [facility] Rx#: [id number] Oral 180 180 Output: Urine 200 450 Other: Voiding Method Toilet Toilet Toilet Urinal Urinal Urinal # Bowel Movements 0 Weight 72.575 kg GENERAL DESCRIPTION: Middle-aged male lying in bed, no distress. No tachypnea or accessory muscle of respiration use. HEENT: Shows Pallor , no scleral icterus. Oral mucous membrane is dry. No pharyngeal erythema or thrush NECK: Trachea central, no thyromegaly. LUNGS: Unlabored breathing. Clear to auscultation anteriorly. No wheeze or crackle. HEART: S1, S2, regular rate and rhythm. No loud murmur ABDOMEN: Soft, no tenderness , guarding or rigidity, no organomegaly EXTREMITIES: Left lower extremity just below the knee and did have significant swelling redness and blister formation and clear drainage SKIN: No rash, no masses palpable. NEUROLOGICAL: The patient is awake, alert, oriented x3, mood and affect normal. Results CBC & Chem 7: 01/20/23 09:21 01/20/23 09:21 Labs: Abnormal Lab Results - Last 24 Hours (Table) 01/18/23 01/18/23 01/18/23 Range/Units 11:45 13:41 23:50 WBC (3.8-10.6) k/uL RBC (4.30-5.90) m/uL Hgb (13.0-17.5) gm/dL Hct (39.0-53.0) % MCV (80.0-100.0) fL ESR 96 H (0-20) mm/Hr PT 9.8 L (10.0-12.5) sec APTT 30.7 H 31.6 H (22.0-30.0) sec Chloride (98-107) mmol/L Carbon Dioxide (22-30) mmol/L BUN (9-20) mg/dL Creatinine (0.66-1.25) mg/dL Glucose (74-99) mg/dL Calcium (8.4-10.2) mg/dL Alkaline Phosphatase (38-126) U/L C-Reactive Protein (<1.0) mg/dL Total Protein (6.3-8.2) g/dL Albumin (3.5-5.0) g/dL 01/19/23 01/19/23 Range/Units 07:52 07:52 WBC 20.2 H (3.8-10.6) k/uL RBC 3.46 L (4.30-5.90) m/uL Hgb 9.2 L (13.0-17.5) gm/dL Hct 27.6 L (39.0-53.0) % MCV 79.8 L (80.0-100.0) fL ESR (0-20) mm/Hr PT (10.0-12.5) sec APTT (22.0-30.0) sec Chloride 114 H (98-107) mmol/L Carbon Dioxide 15 L (22-30) mmol/L BUN 25 H (9-20) mg/dL Creatinine 1.70 H (0.66-1.25) mg/dL Glucose 109 H (74-99) mg/dL Calcium 7.5 L (8.4-10.2) mg/dL Alkaline Phosphatase 157 H (38-126) U/L C-Reactive Protein 25.1 H (<1.0) mg/dL Total Protein 4.1 L (6.3-8.2) g/dL Albumin 2.1 L (3.5-5.0) g/dL Assessment and Plan (1) Left leg cellulitis Current Visit: Yes Status: Acute Code(s): L03.116 - CELLULITIS OF LEFT LOWER LIMB SNOMED Code(s): 53553263697485947 (2) Sepsis Current Visit: Yes Status: Acute Code(s): A41.9 - SEPSIS, UNSPECIFIED ORGANISM SNOMED Code(s): 92618067 Plan: 1patient present to hospital increasing pain swelling redness to the left lower extremity which is concentrated mostly below the left knee area with a question of possible left knee septic prepatellar bursitis previous history of MRSA infection 2-local culture has been obtained that will guide further antibiotic therapy 3-patient renal insufficiency and high risk of nephrotoxicity from vancomycin, kidney function will be monitor closely 4continue with cefepime and vancomycin while waiting for the culture to finalize We will follow on clinical condition and cultures to further adjust medication if needed Thank you for this consultation we will follow the patient along with you Dictation was produced using [employer] software. please excuse any grammatical, word or spelling errors. Time with Patient: Greater than 30
[2023-01-20] MEDS: ASPIRIN 81 MG PO SCH (09:02)
[2023-01-20] MEDS: VANCOMYCIN 1,250 MG in SODIUM CHLORIDE 0.9% 250 ML IVPB SCH (09:02)
[2023-01-20] MEDS: NICOTINE 21MG/24HR PATCH TRANSDERM SCH (09:02)
[2023-01-20] MEDS: METOPROLOL TARTRATE 50 MG TAB PO SCH ×3 (09:02→21:38)
[2023-01-20 10:05] LABS: ALT 25 U/L (4-49); AST 19 U/L (17-59); African American GFR (CKD) 51 (>60 ml/min/1.73 sqM); Albumin 2.3 g/dL (3.5-5.0); Alkaline Phosphatase 159 U/L (38-126); Anion Gap 11 mmol/L; Blood Urea Nitrogen 24 mg/dL (9-20); Carbon Dioxide 16 mmol/L (22-30); Chloride 111 mmol/L (98-107); Glucose 93 mg/dL (74-99); Non-African American GFR(CKD) 44 (>60 ml/min/1.73 sqM); Potassium 4.3 mmol/L (3.5-5.1); Sodium 138 mmol/L (137-145); Total Bilirubin 0.5 mg/dL (0.2-1.3); Total Protein 4.5 g/dL (6.3-8.2)
[2023-01-20] MEDS: HEPARIN SOD,PORK IN 0.45% NACL 25,000 UNIT in 0.45% NACL 1 250ML.BAG IV SCH (10:15)
[2023-01-20 10:35] LABS: HCT 30.1 % (39.0-53.0); HGB 10.2 gm/dL (13.0-17.5); MCH 26.7 pg (25.0-35.0); MCHC 34.1 g/dL (31.0-37.0); MCV 78.2 fL (80.0-100.0); Mean Platelet Volume 7.9; Platelet Count 399 k/uL (150-450); RBC 3.84 m/uL (4.30-5.90); RDW 15.1 % (11.5-15.5); WBC 19.7 k/uL (3.8-10.6)
--- NOTE | 2023-01-20 11:50 | P.PN ---
Subjective HISTORY OF PRESENT ILLNESS: This is a 62-year-old male with a history of hypertension, hyperlipidemia, CVA, and nicotine dependence. Patient is admitted to the hospital secondary to left lower extremity cellulitis. He has been evaluated by orthopedics with no plans for surgical intervention. Patient was also found to be in A. fib with RVR. The patient denied a history of atrial fibrillation. At the time of examinatio n, the patient remains in atrial for ablation with a heart rate in the 120s. He remains on IV heparin. He also remains on IV Cardizem at 5 mg an hour. PHYSICAL EXAM: VITAL SIGNS: Reviewed. GENERAL: Well-developed in no acute distress. NECK: Supple. No JVD or thyromegaly LUNGS: Respirations even and unlabored. Lungs essentially clear to auscultation bilaterally. HEART: Tachycardic. Irregular rate and rhythm. S1 and S2 heard. EXTREMITIES: Normal range of motion. No clubbing or cyanosis. Peripheral pulses intact. Left lower extremity with erythema and edema noted ASSESSMENT: Left lower extremity cellulitis Sepsis New-onset atrial fibrillation with RVR Acute kidney injury Hypertension Hyperlipidemia History of CVA Hypokalemia Nicotine dependence PLAN: Discontinue IV heparin. Begin Eliquis 5 mg twice a day Discontinue aspirin Increase metoprolol to 100 mg 3 times a day Continue IV Cardizem. Currently at 5 mg an hour. May increase to 10 mg an hour for optimal heart rate control 2-D echo has been ordered. Await results. Further recommendations pending patient's course Nurse practitioner note has been reviewed by physician. Signing provider agrees with the documented findings, assessment, and plan of care. Objective - Vital Signs Vital signs: Vital Signs Temp 97.7 F 01/20/23 08:00 Pulse 97 01/20/23 08:00 Resp 16 01/20/23 08:00 BP 168/99 01/20/23 08:00 Pulse Ox 93 L 01/20/23 08:00 FiO2 Intake & Output 01/19/23 01/20/23 01/20/23 18:59 06:59 18:59 Intake Total 313.754 505.601 192.066 Output Total 800 925 Balance -486.246 -419.399 192.066 Intake: Intake, IV Titration 133.754 105.601 192.066 Amount Diltiazem 125 mg In 47.667 Sodium Chloride 0.9% 100 ml @ 5 MG/HR 5 mls/hr IV .Q24H [facility] Rx#:[id number] Heparin Sod,Pork in 0.45% 133.754 105.601 144.399 NaCl 25,000 unit In 0.45 % NaCl 1 250ml.bag @ 12 UNITS/KG/HR 8.709 mls/hr IV .Q24H [facility] Rx#: [id number] Oral 180 400 Output: Urine 800 925 Other: Voiding Method Toilet Toilet Toilet Urinal Urinal Urinal # Voids 1 1 # Bowel Movements 0 1 - Labs CBC & Chem 7: 01/20/23 09:21 01/20/23 09:21 Labs: Abnormal Lab Results - Last 24 Hours (Table) 01/18/23 01/19/23 01/20/23 Range/Units 11:45 07:52 09:21 WBC 19.7 H (3.8-10.6) k/uL RBC 3.84 L (4.30-5.90) m/uL Hgb 10.2 L (13.0-17.5) gm/dL Hct 30.1 L (39.0-53.0) % MCV 78.2 L (80.0-100.0) fL ESR 96 H (0-20) mm/Hr Chloride (98-107) mmol/L Carbon Dioxide (22-30) mmol/L BUN (9-20) mg/dL Creatinine (0.66-1.25) mg/dL Calcium (8.4-10.2) mg/dL Alkaline Phosphatase (38-126) U/L C-Reactive Protein 25.1 H (<1.0) mg/dL Total Protein (6.3-8.2) g/dL Albumin (3.5-5.0) g/dL 01/20/23 Range/Units 09:21 WBC (3.8-10.6) k/uL RBC (4.30-5.90) m/uL Hgb (13.0-17.5) gm/dL Hct (39.0-53.0) % MCV (80.0-100.0) fL ESR (0-20) mm/Hr Chloride 111 H (98-107) mmol/L Carbon Dioxide 16 L (22-30) mmol/L BUN 24 H (9-20) mg/dL Creatinine 1.64 H (0.66-1.25) mg/dL Calcium 8.0 L (8.4-10.2) mg/dL Alkaline Phosphatase 159 H (38-126) U/L C-Reactive Protein (<1.0) mg/dL Total Protein 4.5 L (6.3-8.2) g/dL Albumin 2.3 L (3.5-5.0) g/dL Microbiology - Last 24 Hours (Table) 01/18/23 11:45 Blood Culture - Preliminary Blood 01/18/23 11:30 Blood Culture - Preliminary Blood 01/18/23 11:45 Gram Stain - Preliminary Knee - Left
--- NOTE | 2023-01-20 12:03 | P.PN ---
Subjective Progress Note Date: 01/20/23 Principal diagnosis: Reason for follow-up is left lower extremity cellulitis Patient is a 62-year-old male with a past medical his significant for CVA TIA hypertension previous history of MRSA infection to the left knee patient presenting to the hospital with a left leg pain and swelling , patient been diagnosed with extensive left lower extremity cellulitis. On today's evaluation that is 01/20/2023, the patient continues to be afebrile , the patient is not requiring any supplemental oxygen and is breathing comfortably on room air , the patient denies any chest pain no cough or sputum production, patient denies Abdominal pain and denies any nausea/vomiting/no di arrhea has been reported, denies any worsening pain to the left lower extremity. Patient white count is slightly down to 19.7, creatinine 1.64 cultures are pending Objective - Vital Signs Vital signs: Vital Signs Temp 98.4 F 01/20/23 01:05 Pulse 125 H 01/20/23 00:00 Resp 16 01/20/23 00:00 BP 142/97 01/20/23 04:00 Pulse Ox 95 01/20/23 00:00 FiO2 Intake & Output 01/19/23 01/20/23 01/20/23 18:59 06:59 18:59 Intake Total 313.754 505.601 192.066 Output Total 800 925 Balance -486.246 -419.399 192.066 Intake: Intake, IV Titration 133.754 105.601 192.066 Amount Diltiazem 125 mg In 47.667 Sodium Chloride 0.9% 100 ml @ 5 MG/HR 5 mls/hr IV .Q24H [facility] Rx#:[id number] Heparin Sod,Pork in 0.45% 133.754 105.601 144.399 NaCl 25,000 unit In 0.45 % NaCl 1 250ml.bag @ 12 UNITS/KG/HR 8.709 mls/hr IV .Q24H [facility] Rx#: [id number] Oral 180 400 Output: Urine 800 925 Other: Voiding Method Toilet Toilet Urinal Urinal # Voids 1 1 # Bowel Movements 0 1 - Exam GENERAL DESCRIPTION: A middle-age male lying in bed in no distress RESPIRATORY SYSTEM: Unlabored breathing , clear to auscultation anteriorly HEART: S1 S2 regular rate and rhythm , ABDOMEN: Soft , no tenderness EXTREMITIES: Left lower extremity with swelling redness slightly decreased did have some blistering just below the knee area - Labs CBC & Chem 7: 01/20/23 09:21 01/20/23 09:21 Labs: Abnormal Lab Results - Last 24 Hours (Table) 01/18/23 01/19/23 01/20/23 Range/Units 11:45 07:52 09:21 ESR 96 H (0-20) mm/Hr Chloride 111 H (98-107) mmol/L Carbon Dioxide 16 L (22-30) mmol/L BUN 24 H (9-20) mg/dL Creatinine 1.64 H (0.66-1.25) mg/dL Calcium 8.0 L (8.4-10.2) mg/dL Alkaline Phosphatase 159 H (38-126) U/L C-Reactive Protein 25.1 H (<1.0) mg/dL Total Protein 4.5 L (6.3-8.2) g/dL Albumin 2.3 L (3.5-5.0) g/dL Microbiology - Last 24 Hours (Table) 01/18/23 11:45 Blood Culture - Preliminary Blood 01/18/23 11:30 Blood Culture - Preliminary Blood 01/18/23 11:45 Gram Stain - Preliminary Knee - Left Assessment and Plan (1) Left leg cellulitis Current Visit: Yes Status: Acute Code(s): L03.116 - CELLULITIS OF LEFT LOWER LIMB SNOMED Code(s): 61609593242385479 Plan: 1patient present to hospital increasing pain swelling redness to the left lower extremity which is concentrated mostly below the left knee area with a question of possible left knee septic prepatellar bursitis previous history of MRSA infection 2-local culture has been obtained and are currently pending 3-patient will continue with cefepime and vancomycin while waiting for the culture to finalize and monitor clinical course closely Dictation was produced using [employer] software. please excuse any grammatical, word or spelling errors. Time with Patient: Less than 30
[2023-01-20] MEDS: APIXABAN 5 MG TAB PO SCH ×2 (13:01→21:38)
[2023-01-20] MEDS: CEFEPIME 2 GM in SODIUM CHLORIDE 0.9% 100 ML IVPB SCH (13:02)
--- NOTE | 2023-01-20 13:43 | P.PN ---
Subjective Progress Note Date: 01/20/23 Principal diagnosis: Cellulitis left lower extremity. This is a 62-year-old male with recent history of increased swelling and pain to the left knee. He states that he has had this issue in the past but has related the pain due to his severe arthritis in his left knee. He says he has had a MRSA infection in that knee in the past. He has history of knee surgeries when he was in high school for meniscal tears. He states that he has been evaluated recently for knee replacement. He states that over a week ago he began having increased redness and swelling to the anterior aspect of the knee which extended down into the lower leg. He was evaluated at [facility] on 01/16/2023 and he was transferred here for further evaluation and IV antibiotics. He was found to have a white blood cell count of 26.1 with elevated sed rate and CRP. He is admitted for IV antibiotics. We're consulted for orthopedic evaluation. 01/20/2023: The patient is stable from an orthopedic standpoint. He continues to have pain and swelling to the lower leg. He has no new complaints or concerns today. Vital signs are stable. Objective - Vital Signs Vital signs: Vital Signs Temp 97.7 F 01/20/23 08:00 Pulse 97 01/20/23 08:00 Resp 16 01/20/23 08:00 BP 168/99 01/20/23 08:00 Pulse Ox 93 L 01/20/23 08:00 FiO2 Intake & Output 01/19/23 01/20/23 01/20/23 18:59 06:59 18:59 Intake Total 313.754 505.601 192.066 Output Total 800 925 300 Balance -486.246 -419.399 -107.934 Intake: Intake, IV Titration 133.754 105.601 192.066 Amount Diltiazem 125 mg In 47.667 Sodium Chloride 0.9% 100 ml @ 5 MG/HR 5 mls/hr IV .Q24H [facility] Rx#:[id number] Heparin Sod,Pork in 0.45% 133.754 105.601 144.399 NaCl 25,000 unit In 0.45 % NaCl 1 250ml.bag @ 12 UNITS/KG/HR 8.709 mls/hr IV .Q24H [facility] Rx#: [id number] Oral 180 400 Output: Urine 800 925 300 Other: Voiding Method Toilet Toilet Toilet Urinal Urinal Urinal # Voids 1 1 # Bowel Movements 0 1 - Exam Exam of the left lower leg is essentially unchanged. Continued erythema to the lower leg. Open blister to the anterior medial aspect with no active drainage. Intact blister over the anterior lateral aspect of the leg. Full foot and ankle motion without difficulty. Neurovascular status to the lower extremity is intact. - Labs CBC & Chem 7: 01/20/23 09:21 01/20/23 09:21 Labs: Abnormal Lab Results - Last 24 Hours (Table) 01/20/23 01/20/23 Range/Units 09:21 09:21 WBC 19.7 H (3.8-10.6) k/uL RBC 3.84 L (4.30-5.90) m/uL Hgb 10.2 L (13.0-17.5) gm/dL Hct 30.1 L (39.0-53.0) % MCV 78.2 L (80.0-100.0) fL Chloride 111 H (98-107) mmol/L Carbon Dioxide 16 L (22-30) mmol/L BUN 24 H (9-20) mg/dL Creatinine 1.64 H (0.66-1.25) mg/dL Calcium 8.0 L (8.4-10.2) mg/dL Alkaline Phosphatase 159 H (38-126) U/L Total Protein 4.5 L (6.3-8.2) g/dL Albumin 2.3 L (3.5-5.0) g/dL Microbiology - Last 24 Hours (Table) 01/18/23 11:45 Blood Culture - Preliminary Blood 01/18/23 11:30 Blood Culture - Preliminary Blood 01/18/23 11:45 Gram Stain - Preliminary Knee - Left Assessment and Plan (1) Left leg cellulitis Current Visit: Yes Status: Acute Code(s): L03.116 - CELLULITIS OF LEFT LOWER LIMB SNOMED Code(s): 13574452456455401 (2) New onset atrial fibrillation Current Visit: Yes Status: Acute Code(s): I48.91 - UNSPECIFIED ATRIAL FIBRILLATION SNOMED Code(s): 15660413 Plan: The clinical and x-ray findings are discussed with the patient. It is recommended he continue on the IV antibiotics. Continue IV antibiotics and wound care. At this time we do not anticipate the need for surgical intervention. We will continue to follow.
--- NOTE | 2023-01-20 14:32 | P.PN ---
Subjective Progress Note Date: 01/20/23 Hospital Course: Patient is a very pleasant 62-year-old male with a past medical history of hypertension, hyperlipidemia, multiple CVAs with no residual deficits followed by loop recorder placement in 2011, and nicotine dependence. Patient presented to the emergency department secondary to left lower extremity pain, swelling, and concerns of infection. Upon arrival to our facility patient's initial set of vitals were as follows blood pressure 129/66, heart rate 80, respiratory rate 18, temp 98.0F, SpO2 of 90% on room air. Shortly after arrival patient became tachycardic and was found to be in new-onset atrial fibrillation with RVR. EKG was completed confirming atrial fibrillation with RVR at [address] depression in inferior lateral leads and right bundle branch block upon personal review and interpretation. No previous EKGs available for comparison. Chest x- ray completed negative for acute cardiopulmonary process. Labs completed and reviewed showing microcytic anemia with hemoglobin of 10.6 and severe leukocytosis with left shift with WBC count of 26.1, neutrophils of 23.4, and monocytes of 1.04. Coagulation profile showing low PT of 9.8 and elevated PTT of 30.7. BMP revealing hypokalemia with potassium of 3.3, hypocarbia with b icarb of 20, and elevated renal function with BUN of 31, creatinine 1.87, and GFR of 38 with unknown baseline levels. Liver profile showing elevated alkaline phosphatase of 171. Troponin 0.015. Lactic acid was normal findings at 1.1. CRP was significantly elevated at 34.9 and ESR is still pending. Blood cultures and wound cultures were obtained and sent to lab for analysis. X-rays completed of right knee, tibia, and fibula showing no evidence of acute fracture revealing soft tissue swelling of prepatellar space correlating for cellulitis with severe end-stage left knee osteophytosis. Patient was started given sepsis bolus of 2 L 0.9% normal saline and started on IV antibiotics with vancomycin and cefepime for treatment of sepsis. He was then started on low intensity heparin infusion for anticoagulation for new onset atrial fibrillation with RVR and given a Cardizem bolus followed by Cardizem infusion for ventricular rate control. 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 Physical exam: Patient seen and fully evaluated at bedside this morning. He reports controlled pain in his left leg. Patient reports having a rough night and concerned that his heart rate was elevated again. Patient reports overall just feeling unwell and tired this morning. He denies having any headache, lightheadedness, dizziness, chest pain, shortness of breath, nausea, or vomiting. Vital signs reviewed and stable. General: Nontoxic, no distress and appears stated age. Derm: Skin warm and dry, normal coloration for ethnicity. Left lower extremity with 3+ edema beginning just above knee extending distally down into left foot, mild erythema surrounding the knee with large blisters and open wounds/blisters, lower extremity appears to have more of a venous discoloration with minimal erythema but persistent edema extending down into the foot. Head: Atraumatic, normocephalic and symmetric. Eyes: EOMs intact, no lid lag, and anicteric sclera Mouth: no lip lesions, mucus membranes moist Cardiovascular: Irregularly irregular, systolic murmur, positive posterior tibial pulses bilaterally, and cap refill < 2 seconds. Lungs: Respirations even, regular, and unlabored on room air. Lungs CTA bilaterally, no rhonchi, no rales, no wheezing, and no accessory muscle usage. Abdominal: soft, nontender to palpation, no guarding, no appreciable o rganomegaly Ext: No gross muscle atrophy, no edema, no contractures. Movement and sensation intact. Patient with limited movement of left knee secondary to pain resulting from swelling and infection. Neuro: Speech clear, face symmetrical and CN II-XII grossly intact with no noted focal neuro deficits Psych: Alert and oriented to person, place, time, and situation. Appropriate and pleasant affect. Assessment and Plan of Care: Atrial fibrillation with RVR, new onset. Likely brought on by sepsis. -Overnight patient again with uncontrolled RVR with rate 150s despite increasing metoprolol to 100 mg twice daily, cardiology was notified and again gave patient Cardizem bolus and placed him back on Cardizem infusion. -Continue anticoagulation with low intensity heparin infusion. Infusion rate previously 15 units/kg/hr and was increased to 16 units/kg/hr secondary to subtherapeutic PTT of 22.8. We will continue close monitoring of PTT every 6 hours with a goal therapeutic range of 44-79 seconds. -[id number] score is 3 -Discussed with patient will transition him to oral anticoagulant with either Eliqiuis or Xarelto pending pharmacy verification on which medication is covered via insurance and pricing, Eliquis sent to pharmacy for prabhakar check. -Currently patient remains on Cardizem infusion at 5 mg per hour and has been taking metoprolol 100 mg twice a day for a total of 3 doses, he remains in atrial fibrillation with ventricular rate ranging from 90s to 110s at this time. -Cardiology following, reviewed documentation in chart. -Echocardiogram completed and awaiting results. -Patient to remain on continuous Telemetry monitoring Severe sepsis Left lower extremity cellulitis Acute kidney injury, improving Microcytic anemia Severe leukocytosis -Continue IV antibiotics with vancomycin 1250 mg every 24 hours IVPB and cefepime 2 g IVPB every 12 hours. Monitor renal function and vancomycin trough closely for any signs of vancomycin-induced renal toxicity. -Symptomatic care and pain management. -Follow up on blood cultures and wound culture results. -ESR 96 and CRP 34.9. Repeat daily CBC and inflammatory markers to monitor for improvement. -Infectious disease consulted, reviewed documentation in chart. -Orthopedic surgery following and discussed case with orthopedic PA recommending K pad and continuation of IV antibiotics. -Venous Doppler left lower extremity was completed and was negative, ruling out DVT. Hypertension Hyperlipidemia Previous CVAs Nicotine dependence Lisinopril held secondary to acute kidney injury and carvedilol discontinued. Metoprolol was increased yesterday to100 mg twice a day and pt to continue current daily dose of aspirin 81 mg each morning. Continue with nicotine patch 21 mg daily. Recommend smoking cessation. Hypokalemia, resolved Data and imaging reviewed: -Labs completed and reviewed. CBC revealing leukocytosis with WBC count of 19.7 and stable microcytic anemia with hemoglobin of 10.2. BMP showing hyperchloremia with chloride of 111 and hypocarbia with bicarb of 16. Renal function showing BUN of 24, creatinine 1.64, and GFR of 44. -Vital signs reviewed. Blood pressure 168/99, heart rate 97, respiratory rate 16, temp 97.7F, SpO2 of 93% on room air. Temperature high over the past 24 hours was 100.6F. CODE STATUS: Full code DVT prophylaxis: Heparin Anticipated discharge date: Clinical course to determine Anticipated discharge place: Clinical course to determine Patient was seen independently by Nurse Practitioner. This document was prepared using [employer] dictation software. Please allow for errors in research professional while rare they do occur. Oniel Spencer, ATTENDANT [employer] rendered care for this patient independently, reviewed the findings and plan as documented in the note above. I did not physically speak with or examine the patient on this date. Objective - Vital Signs Vital signs: Vital Signs Temp 98.4 F 01/20/23 01:05 Pulse 125 H 01/20/23 00:00 Resp 16 01/20/23 00:00 BP 142/97 01/20/23 04:00 Pulse Ox 95 01/20/23 00:00 FiO2 Intake & Output 01/19/23 01/20/23 01/20/23 18:59 06:59 18:59 Intake Total 313.754 505.601 Output Total 800 925 Balance -486.246 -419.399 Intake: Intake, IV Titration 133.754 105.601 Amount Heparin Sod,Pork in 0.45% 133.754 105.601 NaCl 25,000 unit In 0.45 % NaCl 1 250ml.bag @ 12 UNITS/KG/HR 8.709 mls/hr IV .Q24H [facility] Rx#: [id number] Oral 180 400 Output: Urine 800 925 Other: Voiding Method Toilet Toilet Urinal Urinal # Voids 1 1 # Bowel Movements 0 1 - Labs CBC & Chem 7: 01/20/23 09:21 01/20/23 09:21 Labs: Abnormal Lab Results - Last 24 Hours (Table) 01/18/23 01/19/23 Range/Units 11:45 07:52 ESR 96 H (0-20) mm/Hr Chloride 114 H (98-107) mmol/L Carbon Dioxide 15 L (22-30) mmol/L BUN 25 H (9-20) mg/dL Creatinine 1.70 H (0.66-1.25) mg/dL Glucose 109 H (74-99) mg/dL Calcium 7.5 L (8.4-10.2) mg/dL Alkaline Phosphatase 157 H (38-126) U/L C-Reactive Protein 25.1 H (<1.0) mg/dL Total Protein 4.1 L (6.3-8.2) g/dL Albumin 2.1 L (3.5-5.0) g/dL Microbiology - Last 24 Hours (Table) 01/18/23 11:45 Blood Culture - Preliminary Blood 01/18/23 11:30 Blood Culture - Preliminary Blood 01/18/23 11:45 Gram Stain - Preliminary Knee - Left
[2023-01-20] MEDS ORDERED: IPRATROPIUM-ALBUTEROL 3 ML NEB INHALATION PRN (17:09)
--- NOTE | 2023-01-20 17:45 | XR ---
EXAMINATION TYPE: XR chest 1V portable DATE OF EXAM: 01/20/2023 5:27 PM CLINICAL INDICATION:Male, 62 years old with history of increasing SOB; [facility] COMPARISON: Chest radiographs from 01/18/2023 TECHNIQUE: XR chest 1V portable Frontal view of the chest. FINDINGS: Lungs/Pleura: Right lower lung airspace opacities. There is no evidence of pleural effusion, or pneum othorax. Pulmonary vascularity: Unremarkable. Heart/mediastinum: Cardiomediastinal silhouette is unremarkable. A loop recorder projects over the le ft thorax over the heart. Musculoskeletal: No acute osseous pathology. IMPRESSION: Right lower lung airspace opacities correlate for pneumonia correlate for aspiration.
[2023-01-20] MEDS ORDERED: FUROSEMIDE 10 MG/ML 4 ML VIAL IV STA (19:21)
[2023-01-20] MEDS: IPRATROPIUM-ALBUTEROL 3 ML NEB INHALATION SCH (21:01)
[2023-01-21] MEDS: CEFEPIME 2 GM in SODIUM CHLORIDE 0.9% 100 ML IVPB SCH ×2 (00:13→13:04)
[2023-01-21] MEDS: MORPHINE SULFATE 4 MG/ML SYRINGE IV PRN ×6 (00:56→22:56)
--- NOTE | 2023-01-21 07:08 | CA ---
Transthoracic Echo Report Name: Vitor Ann Age: 62 Gender: M : 1960 Exam Date: 01/20/2023 12:39 Exam Location: [place] [facility] Ht (in): 67 Wt (lb): 160 Ordering Physician: Oniel Spencer Attending/Referring Phys: Electronics Inspector Brianna Nair RDCS Procedure CPT: Indications: new onset atrial fibrillation RVR w/ severe sepsis Cardiac Hx: Technical Quality: Good Contrast 1: Total Dose (mL): Contrast 2: Total Dose (mL): MEASUREMENTS (Male / Female) Normal Values 2D ECHO LV Diastolic Diameter PLAX 5.3 cm 4.2 - 5.9 / 3.9 - 5.3 cm LV Systolic Diameter PLAX 3.5 cm IVS Diastolic Thickness 1.2 cm 0.6 - 1.0 / 0.6 - 0.9 cm LVPW Diastolic Thickness 1.3 cm 0.6 - 1.0 / 0.6 - 0.9 cm LV Relative Wall Thickness 0.5 RV Internal Dim ED PLAX 3.6 cm LA Systolic Diameter LX 3.8 cm 3.0 - 4.0 / 2.7 - 3.8 cm LV Diastolic Volume MOD 4C 116.9 cm??? LV Systolic Volume MOD 4C 66.2 cm??? LV Ejection Fraction MOD 4C 43.4 % LV Cardiac Index MOD 4C 2450.2 cm???/min???m??? LV Diastolic Length 4C 8.3 cm LV Systolic Length 4C 7.5 cm LV Diastolic Volume MOD 2C 103.5 cm??? LV Systolic Volume MOD 2C 49.4 cm??? LV Ejection Fraction MOD 2C 52.3 % LV Cardiac Index MOD 2C 2618.1 cm???/min???m??? LV Diastolic Length 2C 8.4 cm LV Systolic Length 2C 7.6 cm LA Volume 77.3 cm??? 18 - 58 / 22 - 52 cm??? LA Volume Index 41.5 cm???/m??? 16 - 28 cm???/m??? M-MODE Aortic Root Diameter MM 3.8 cm AV Cusp Separation MM 2.1 cm DOPPLER AV Peak Velocity 160.8 cm/s AV Peak Gradient 10.3 mmHg AI Peak Velocity 378.9 cm/s AI Peak Gradient 57.4 mmHg AI Pressure Half Time 946.3 ms MV Area PHT 3.5 cm??? Mitral E Point Velocity 133.8 cm/s Mitral A Point Velocity 46.5 cm/s Mitral E to A Ratio 2.9 MV Deceleration Time 216.1 ms TR Peak Velocity 323.9 cm/s TR Peak Gradient 42.0 mmHg Right Ventricular Systolic Press 46.5 mmHg FINDINGS Left Ventricle Left ventricular ejection fraction is estimated at 45-50 %. Left ventricular cavity size normal. Mildly increased septal wall thickness. Right Ventricle Mild right ventricular dilatation. Moderate pulmonary hypertension. Right Atrium Normal right atrial size. Left Atrium Moderately increased left atrial volume. Mildly increased left atrial area. Mitral Valve Mitral valve thickened. Mild mitral annular calcification. [id number] mitral regurgitation. Aortic Valve Trileaflet aortic valve. Aortic valve sclerosis. Mild aortic regurgitation. Tricuspid Valve Structurally normal tricuspid valve. [id number] tricuspid regurgitation. Pulmonic Valve Pulmonic valve not well visualized. Pericardium No pericardial effusion. Aorta Mild aortic dilatation at the level of the sinuses of valsalva 38 mm CONCLUSIONS LV size is normal ejection fraction is 45-50%. Enlarged atria mild right ventricular enlargement moderate pulmonary hypertension no pericardial effusion. There is mild to moderate mitral and tricuspid regurgitation with mild aortic insufficiency Previewed by: Dr. Eleonora Rooney MD (Electronically Signed) Final Date: 21 January 2023 07:07
[2023-01-21] MEDS ORDERED: VANCOMYCIN TROUGH DUE 1 EACH MISC MISCELLANE ONE (08:00)
[2023-01-21] MEDS: IPRATROPIUM-ALBUTEROL 3 ML NEB INHALATION SCH ×3 (08:08→21:08)
[2023-01-21 08:41] LABS: HCT 28.5 % (39.0-53.0); HGB 9.6 gm/dL (13.0-17.5); MCH 26.1 pg (25.0-35.0); MCHC 33.6 g/dL (31.0-37.0); MCV 77.6 fL (80.0-100.0); Mean Platelet Volume 6.8; Microcytosis Slight; Platelet Count 493 k/uL (150-450); RBC 3.68 m/uL (4.30-5.90); RDW 15.1 % (11.5-15.5); WBC 18.8 k/uL (3.8-10.6)
[2023-01-21] MEDS ORDERED: FUROSEMIDE 40 MG TAB PO ONE (08:45)
[2023-01-21] MEDS ORDERED: DEXTROSE 5% IN WATER 100 ML with AMIODARONE 150 MG IV ONE (09:00)
[2023-01-21 09:04] LABS: ALT 19 U/L (4-49); AST 14 U/L (17-59); African American GFR (CKD) 46 (>60 ml/min/1.73 sqM); Albumin 2.2 g/dL (3.5-5.0); Alkaline Phosphatase 174 U/L (38-126); Anion Gap 10 mmol/L; Blood Urea Nitrogen 24 mg/dL (9-20); Calcium 7.6 mg/dL (8.4-10.2); Carbon Dioxide 18 mmol/L (22-30); Chloride 108 mmol/L (98-107); Glucose 110 mg/dL (74-99); Non-African American GFR(CKD) 40 (>60 ml/min/1.73 sqM); Potassium 3.3 mmol/L (3.5-5.1); Sodium 136 mmol/L (137-145); Total Bilirubin 0.3 mg/dL (0.2-1.3); Total Protein 4.4 g/dL (6.3-8.2)
[2023-01-21 09:18] LABS: C Reactive Protein 21.9 mg/dL (<1.0)
[2023-01-21] MEDS: VANCOMYCIN 1,250 MG in SODIUM CHLORIDE 0.9% 250 ML IVPB SCH (09:53)
[2023-01-21] MEDS: ACETAMINOPHEN TAB 325 MG TAB PO PRN (09:53)
[2023-01-21] MEDS: APIXABAN 5 MG TAB PO SCH ×2 (09:54→21:27)
[2023-01-21] MEDS: METOPROLOL TARTRATE 50 MG TAB PO SCH ×3 (09:54→21:27)
[2023-01-21] MEDS: NICOTINE 21MG/24HR PATCH TRANSDERM SCH (09:54)
[2023-01-21] MEDS ORDERED: AMIODARONE 360 MG in DEXTROSE 5% IN WATER 200 ML IV ONE ×2 (10:00)
[2023-01-21] MEDS ORDERED: POTASSIUM CHLORIDE ER 20 MEQ TAB.ER PO STA (11:21)
--- NOTE | 2023-01-21 11:22 | P.PN ---
Subjective Progress Note Date: 01/21/23 This is a 62-year-old male who is being followed for cellulitis. Patient is seen and evaluated at bedside today. Patient states that he has noticed improvement in his swelling. Patient denies any new complaints today. Objective - Vital Signs Vital signs: Vital Signs Temp 99.0 F 01/21/23 08:00 Pulse 124 H 01/21/23 08:20 Resp 16 01/21/23 08:00 BP 161/90 01/21/23 08:00 Pulse Ox 93 L 01/21/23 08:11 FiO2 Intake & Output 01/20/23 01/21/23 01/21/23 18:59 06:59 18:59 Intake Total 662.066 Output Total 1000 3750 Balance -337.934 -3750 Weight 74.6 kg Intake: Intake, IV Titration 542.066 Amount Cefepime 2 gm In Sodium 100 Chloride 0.9% 100 ml @ 25 mls/hr IVPB Q12H [facility] Rx# :[id number] Diltiazem 125 mg In 47.667 Sodium Chloride 0.9% 100 ml @ 5 MG/HR 5 mls/hr IV .Q24H [facility] Rx#:[id number] Heparin Sod,Pork in 0.45% 144.399 NaCl 25,000 unit In 0.45 % NaCl 1 250ml.bag @ 12 UNITS/KG/HR 8.709 mls/hr IV .Q24H [facility] Rx#: [id number] Vancomycin 1,250 mg In 250 Sodium Chloride 0.9% 250 ml @ 125 mls/hr IVPB Q24H [facility] Rx#:[id number] Oral 120 Output: Urine 1000 3750 Other: Voiding Method Toilet Toilet Toilet Urinal Urinal Urinal - Exam On exam patient is resting comfortably in bed in no acute distress. Patient is alert and oriented 3. There is swelling and mild erythema over the distal aspect of the left knee. There are two unroofed blisters present. Calf is soft and nontender to palpation. Patient is able to actively flex and extend the left knee. Sensation intact. Neurovascular status and circulatory status are intact. - Labs CBC & Chem 7: 01/21/23 08:12 01/21/23 08:12 Labs: Abnormal Lab Results - Last 24 Hours (Table) 01/21/23 01/21/23 Range/Units 08:12 08:12 WBC 18.8 H (3.8-10.6) k/uL RBC 3.68 L (4.30-5.90) m/uL Hgb 9.6 L (13.0-17.5) gm/dL Hct 28.5 L (39.0-53.0) % MCV 77.6 L (80.0-100.0) fL Plt Count 493 H (150-450) k/uL Sodium 136 L (137-145) mmol/L Potassium 3.3 L (3.5-5.1) mmol/L Chloride 108 H (98-107) mmol/L Carbon Dioxide 18 L (22-30) mmol/L BUN 24 H (9-20) mg/dL Creatinine 1.77 H (0.66-1.25) mg/dL Glucose 110 H (74-99) mg/dL Calcium 7.6 L (8.4-10.2) mg/dL AST 14 L (17-59) U/L Alkaline Phosphatase 174 H (38-126) U/L C-Reactive Protein 21.9 H (<1.0) mg/dL Total Protein 4.4 L (6.3-8.2) g/dL Albumin 2.2 L (3.5-5.0) g/dL Microbiology - Last 24 Hours (Table) 01/18/23 11:45 Blood Culture - Preliminary Blood 01/18/23 11:30 Blood Culture - Preliminary Blood 01/18/23 11:45 Gram Stain - Preliminary Knee - Left Wound Culture - Preliminary Strep A Assessment and Plan (1) Left leg cellulitis Current Visit: Yes Status: Acute Code(s): L03.116 - CELLULITIS OF LEFT LOWER LIMB SNOMED Code(s): 79954160522406237 Plan: Continue with IV antibiotics and wound care per infectious disease. There is no surgical intervention planned. We will continue to follow.
--- NOTE | 2023-01-21 11:30 | P.PN ---
Subjective HISTORY OF PRESENT ILLNESS: This is a 62-year-old male with a history of hypertension, hyperlipidemia, CVA, and nicotine dependence. Patient is admitted to the hospital secondary to left lower extremity cellulitis. He has been evaluated by orthopedics with no plans for surgical intervention. Patient was also found to be in A. fib with RVR. The patient denied a history of atrial fibrillation. At the time of examinatio n, the patient remains in atrial for ablation with a heart rate in the 120s. He remains on IV heparin. He also remains on IV Cardizem at 5 mg an hour. 01/21/2023 Patient examined this morning at the bedside. Patient denies chest pain or pressure. He denies shortness of breath. He does report a frequent cough. The patient did receive a dose of IV Lasix yesterday afternoon. Telemetry reveals atrial fibrillation with a heart rate in the 130s. He remains on IV Cardizem at 5 mg an hour. Echo Cardizem completed revealing ejection fraction 45-50% PHYSICAL EXAM: VITAL SIGNS: Reviewed. GENERAL: Well-developed in no acute distress. NECK: Supple. No JVD or thyromegaly LUNGS: Respirations even and unlabored. Lungs diminished with a few crackles at the bases HEART: Tachycardic. Irregular rate and rhythm. S1 and S2 heard. EXTREMITIES: Normal range of motion. No clubbing or cyanosis. Peripheral pulses intact. Left lower extremity with erythema and edema noted ASSESSMENT: Left lower extremity cellulitis Sepsis New-onset atrial fibrillation with RVR Acute kidney injury Hypertension Hyperlipidemia History of CVA with loop recorder insertion, performed in [place] a few years ago per patient Hypokalemia Nicotine dependence Acute heart failure with mildly reduced EF, 45% PLAN: Continue Eliquis Give 1 dose of oral Lasix 40 mg today Continue IV Cardizem Continue metoprolol tartrate 100 mg 3 times a day Begin IV amiodarone bolus and drip per protocol Patient may require TIKA/cardioversion if rates are not able to be controlled with medications Further recommendations pending patient's course Nurse practitioner note has been reviewed by physician. Signing provider agrees with the documented findings, assessment, and plan of care. Objective - Vital Signs Vital signs: Vital Signs Temp 99.0 F 01/21/23 08:00 Pulse 116 H 01/21/23 10:30 Resp 16 01/21/23 08:00 BP 143/87 11/14/23 10:30 Pulse Ox 93 L 01/21/23 08:11 FiO2 Intake & Output 01/20/23 01/21/23 01/21/23 18:59 06:59 18:59 Intake Total 662.066 Output Total 1000 3750 Balance -337.724 -3750 Weight 74.6 kg Intake: Intake, IV Titration 542.066 Amount Cefepime 2 gm In Sodium 100 Chloride 0.9% 100 ml @ 25 mls/hr IVPB Q12H [facility] Rx# :[id number] Diltiazem 125 mg In 47.667 Sodium Chloride 0.9% 100 ml @ 5 MG/HR 5 mls/hr IV .Q24H [facility] Rx#:[id number] Heparin Sod,Pork in 0.45% 144.399 NaCl 25,000 unit In 0.45 % NaCl 1 250ml.bag @ 12 UNITS/KG/HR 8.709 mls/hr IV .Q24H [facility] Rx#: [id number] Vancomycin 1,250 mg In 250 Sodium Chloride 0.9% 250 ml @ 125 mls/hr IVPB Q24H [facility] Rx#:[id number] Oral 120 Output: Urine 1000 3750 Other: Voiding Method Toilet Toilet Toilet Urinal Urinal Urinal - Labs CBC & Chem 7: 01/21/23 08:12 01/21/23 08:12 Labs: Abnormal Lab Results - Last 24 Hours (Table) 01/21/23 01/21/23 Range/Units 08:12 08:12 WBC 18.8 H (3.8-10.6) k/uL RBC 3.68 L (4.30-5.90) m/uL Hgb 9.6 L (13.0-17.5) gm/dL Hct 28.5 L (39.0-53.0) % MCV 77.6 L (80.0-100.0) fL Plt Count 493 H (150-450) k/uL Sodium 136 L (137-145) mmol/L Potassium 3.3 L (3.5-5.1) mmol/L Chloride 108 H (98-107) mmol/L Carbon Dioxide 18 L (22-30) mmol/L BUN 24 H (9-20) mg/dL Creatinine 1.77 H (0.66-1.25) mg/dL Glucose 110 H (74-99) mg/dL Calcium 7.6 L (8.4-10.2) mg/dL AST 14 L (17-59) U/L Alkaline Phosphatase 174 H (38-126) U/L C-Reactive Protein 21.9 H (<1.0) mg/dL Total Protein 4.4 L (6.3-8.2) g/dL Albumin 2.2 L (3.5-5.0) g/dL Microbiology - Last 24 Hours (Table) 01/18/23 11:45 Blood Culture - Preliminary Blood 01/18/23 11:30 Blood Culture - Preliminary Blood 01/18/23 11:45 Gram Stain - Preliminary Knee - Left Wound Culture - Preliminary Strep A
--- NOTE | 2023-01-21 11:35 | P.PN ---
Subjective Progress Note Date: 01/21/23 Hospital Course: Patient is a very pleasant 62-year-old male with a past medical history of hypertension, hyperlipidemia, multiple CVAs with no residual deficits followed by loop recorder placement in 2011, and nicotine dependence. Patient presented to the emergency department secondary to left lower extremity pain, swelling, and concerns of infection. Upon arrival to our facility patient's initial set of vitals were as follows blood pressure 129/66, heart rate 80, respiratory rate 18, temp 98.0F, SpO2 of 90% on room air. Shortly after arrival patient became tachycardic and was found to be in new-onset atrial fibrillation with RVR. EKG was completed confirming atrial fibrillation with RVR at [address] depression in inferior lateral leads and right bundle branch block upon personal review and interpretation. No previous EKGs available for comparison. Chest x- ray completed negative for acute cardiopulmonary process. Labs completed and reviewed showing microcytic anemia with hemoglobin of 10.6 and severe leukocytosis with left shift with WBC count of 26.1, neutrophils of 23.4, and monocytes of 1.04. Coagulation profile showing low PT of 9.8 and elevated PTT of 30.7. BMP revealing hypokalemia with potassium of 3.3, hypocarbia with b icarb of 20, and elevated renal function with BUN of 31, creatinine 1.87, and GFR of 38 with unknown baseline levels. Liver profile showing elevated alkaline phosphatase of 171. Troponin 0.015. Lactic acid was normal findings at 1.1. CRP was significantly elevated at 34.9 and ESR is still pending. Blood cultures and wound cultures were obtained and sent to lab for analysis. X-rays completed of right knee, tibia, and fibula showing no evidence of acute fracture revealing soft tissue swelling of prepatellar space correlating for cellulitis with severe end-stage left knee osteophytosis. Patient was started given sepsis bolus of 2 L 0.9% normal saline and started on IV antibiotics with vancomycin and cefepime for treatment of sepsis. He was then started on low intensity heparin infusion for anticoagulation for new onset atrial fibrillation with RVR and given a Cardizem bolus followed by Cardizem infusion for ventricular rate control. 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 Venous Doppler left lower extr emity was completed and was negative, ruling out DVT. Echocardiogram completed showing slightly impaired EF of 45-50% with atrial enlargement, right ventricular enlargement, moderate pulmonary hypertension and mild to moderate mitral and tricuspid regurgitation. Physical exam: Patient seen and fully evaluated at bedside this morning. He reports currently feeling well. Patient states pain is controlled and this morning he actually feels "good". Patient remains in A. fib RVR with rate 120s to 140s. Patient denies feeling any palpitations, chest pain, dizziness, lightheadedness, shortness of breath, or any other complaints at this time. Patient is asymptomatic to RVR. Vital signs reviewed and stable. General: Nontoxic, no distress and appears stated age. Derm: Skin warm and dry, normal coloration for ethnicity. Left lower extremity with 3+ edema beginning just above knee extending distally down into left foot, mild erythema surrounding the knee with large blisters and open wounds/blisters, lower extremity appears to have more of a venous discoloration with minimal erythema but persistent edema extending down into the foot. Head: Atraumatic, normocephalic and symmetric. Eyes: EOMs intact, no lid lag, and anicteric sclera Mouth: no lip lesions, mucus membranes moist Cardiovascular: Irregularly irregular, systolic murmur, positive posterior tibial pulses bilaterally, and cap refill < 2 seconds. Lungs: Respirations even, regular, and unlabored on room air. Lungs CTA bilaterally, no rhonchi, no rales, no wheezing, and no accessory muscle usage. Abdominal: soft, nontender to palpation, no guarding, no appreciable organom egaly Ext: No gross muscle atrophy, no edema, no contractures. Movement and sensation intact. Patient with limited movement of left knee secondary to pain resulting from swelling and infection. Neuro: Speech clear, face symmetrical and CN II-XII grossly intact with no noted focal neuro deficits Psych: Alert and oriented to person, place, time, and situation. Appropriate and pleasant affect. Assessment and Plan of Care: Atrial fibrillation with RVR, new onset. Likely brought on by sepsis. -Remains in atrial fibrillation with RVR, poorly controlled ventricular rate 120s to 140s -Cardiology following and starting patient on amiodarone. Patient received amiodarone bolus 750 mg followed by infusion of 1 mg/m. -Continue anticoagulation with Eliquis 5 mg twice daily and metoprolol 100 mg 3 times daily. -Echocardiogram completed showing slightly impaired EF of 45-50% with atrial enlargement, right ventricular enlargement, moderate pulmonary hypertension and mild to moderate mitral and tricuspid regurgitation. -Patient to remain on continuous Telemetry monitoring Severe sepsis Left lower extremity cellulitis Acute kidney injury, likely underlying chronic kidney disease Microcytic anemia Severe leukocytosis -Continue IV antibiotics with vancomycin 1250 mg every 24 hours IVPB and cefepime 2 g IVPB every 12 hours. Monitor renal function and vancomycin trough closely for any signs of vancomycin-induced renal toxicity. Vancomycin trough therapeutic at 11.5. -Symptomatic care and pain management. - Blood culture showing no growth to date. -Wound culture preliminary results showing rare Streptococcus pyogenes. -Infectious disease following, reviewed documentation in chart. -Orthopedic surgery following and discussed case with orthopedic PA recommending continuation of K pad and continuation of IV antibiotics. Hypertension Hyperlipidemia Previous CVAs Nicotine dependence Lisinopril held secondary to acute kidney injury and carvedilol discontinued. Metoprolol was increased yesterday to100 mg 3 times daily and pt to continue current daily dose of aspirin 81 mg each morning. Continue with nicotine patch 21 mg daily. Recommend smoking cessation. Hypokalemia -Potassium 3.3. Order placed for K Dur 40 mEq 1 dose Will repeat labs tomorrow and monitor for resolution of hypokalemia. Data and imaging reviewed: -Labs completed and reviewed. Vancomycin trough therapeutic at 11.5. CBC sh owing leukocytosis with WBC count of 18.8 and stable microcytic anemia with hemoglobin of 9.6. Platelet count is elevated this morning at 493. BMP showing hypokalemia with potassium of 3.3, hyperchloremia with chloride of 108, and hypocarbia with bicarb of 18. Renal function showing elevated BUN of 24, creatinine 1.77, and GFR 40. CRP is improving from previous 34.9 down to 21.9 this morning. ESR pending. Blood culture showing no growth to date. Wound culture preliminary results showing rare Streptococcus pyogenes. -Echocardiogram completed showing slightly impaired EF of 45-50% with atrial enlargement, right ventricular enlargement, moderate pulmonary hypertension and mild to moderate mitral and tricuspid regurgitation. -Vital signs reviewed. Blood pressure 161/90, heart rate 135, respiratory rate 16, temp 99.0F, SpO2 of 95% on room air. CODE STATUS: Full code DVT prophylaxis: Heparin Anticipated discharge date: Clinical course to determine Anticipated discharge place: Clinical course to determine Patient was seen independently by Nurse Practitioner. This document was prepared using [employer] dictation software. Please allow for errors in concrete finisher while rare they do occur. Oniel Spencer DOOR TECHNICIAN rendered care for this patient independently, reviewed the findings and plan as documented in the note above. I did not physically speak with or examine the patient on this date. Objective - Vital Signs Vital signs: Vital Signs Temp 98.0 F 01/20/23 20:23 Pulse 96 01/21/23 03:58 Resp 17 01/21/23 03:58 BP 153/82 01/21/23 03:58 Pulse Ox 92 L 01/21/23 03:58 FiO2 Intake & Output 01/20/23 01/21/23 01/21/23 18:59 06:59 18:59 Intake Total 662.066 Output Total 1000 3750 Balance -337.934 -3750 Weight 74.6 kg Intake: Intake, IV Titration 542.066 Amount Cefepime 2 gm In Sodium 100 Chloride 0.9% 100 ml @ 25 mls/hr IVPB Q12H [facility] Rx# :[id number] Diltiazem 125 mg In 47.667 Sodium Chloride 0.9% 100 ml @ 5 MG/HR 5 mls/hr IV .Q24H [facility] Rx#:[id number] Heparin Sod,Pork in 0.45% 144.399 NaCl 25,000 unit In 0.45 % NaCl 1 250ml.bag @ 12 UNITS/KG/HR 8.709 mls/hr IV .Q24H [facility] Rx#: [id number] Vancomycin 1,250 mg In 250 Sodium Chloride 0.9% 250 ml @ 125 mls/hr IVPB Q24H [facility] Rx#:[id number] Oral 120 Output: Urine 1000 3750 Other: Voiding Method Toilet Toilet Urinal Urinal - Labs CBC & Chem 7: 01/25/23 08:04 01/25/23 08:04 Labs: Abnormal Lab Results - Last 24 Hours (Table) 01/20/23 01/20/23 Range/Units 09:21 09:21 WBC 19.7 H (3.8-10.6) k/uL RBC 3.84 L (4.30-5.90) m/uL Hgb 10.2 L (13.0-17.5) gm/dL Hct 30.1 L (39.0-53.0) % MCV 78.2 L (80.0-100.0) fL Chloride 111 H (98-107) mmol/L Carbon Dioxide 16 L (22-30) mmol/L BUN 24 H (9-20) mg/dL Creatinine 1.64 H (0.66-1.25) mg/dL Calcium 8.0 L (8.4-10.2) mg/dL Alkaline Phosphatase 159 H (38-126) U/L Total Protein 4.5 L (6.3-8.2) g/dL Albumin 2.3 L (3.5-5.0) g/dL Microbiology - Last 24 Hours (Table) 01/18/23 11:45 Blood Culture - Preliminary Blood 01/18/23 11:30 Blood Culture - Preliminary Blood 01/18/23 11:45 Gram Stain - Preliminary Knee - Left Wound Culture - Preliminary Strep A
--- NOTE | 2023-01-21 13:48 | P.PN ---
Subjective Progress Note Date: 01/21/23 Principal diagnosis: Reason for follow-up is left lower extremity cellulitis Patient is a 62-year-old male with a past medical his significant for CVA TIA hypertension previous history of MRSA infection to the left knee patient presenting to the hospital with a left leg pain and swelling , patient been diagnosed with extensive left lower extremity cellulitis. On today's evaluation that is 01/21/2023, the patient remains to be afebrile , the patient is breathing comfortably on room air , the patient denies chest pain , degenerative occasional dry cough , patient denies nausea/vomiting/ diarrhea and no abdominal pain, the patient pain to the left lower extremity has decreased in intensity. Patient white count is slightly down to 18.8, creatinine is 1.77, blood culture negative, local cultures growing group A strep Objective - Vital Signs Vital signs: Vital Signs Temp 99.0 F 01/21/23 08:00 Pulse 96 01/21/23 11:46 Resp 16 01/21/23 08:00 BP 143/87 01/21/23 10:30 Pulse Ox 93 L 01/21/23 08:11 FiO2 Intake & Output 01/20/23 01/21/23 01/21/23 18:59 06:59 18:59 Intake Total 662.066 Output Total 1000 3750 Balance -337.934 -3750 Weight 74.6 kg Intake: Intake, IV Titration 542.066 Amount Cefepime 2 gm In Sodium 100 Chloride 0.9% 100 ml @ 25 mls/hr IVPB Q12H [facility] Rx# :[id number] Diltiazem 125 mg In 47.667 Sodium Chloride 0.9% 100 ml @ 5 MG/HR 5 mls/hr IV .Q24H [facility] Rx#:[id number] Heparin Sod,Pork in 0.45% 144.399 NaCl 25,000 unit In 0.45 % NaCl 1 250ml.bag @ 12 UNITS/KG/HR 8.709 mls/hr IV .Q24H [facility] Rx#: [id number] Vancomycin 1,250 mg In 250 Sodium Chloride 0.9% 250 ml @ 125 mls/hr IVPB Q24H [facility] Rx#:[id number] Oral 120 Output: Urine 1000 3750 Other: Voiding Method Toilet Toilet Toilet Urinal Urinal Urinal - Exam GENERAL DESCRIPTION: A middle-age male lying in bed in no distress RESPIRATORY SYSTEM: Unlabored breathing , clear to auscultation anteriorly HEART: S1 S2 regular rate and rhythm , ABDOMEN: Soft , no tenderness EXTREMITIES: Left lower extremity with swelling redness slightly decreased did have some blistering just below the knee area - Labs CBC & Chem 7: 01/21/23 08:12 01/21/23 08:12 Labs: Abnormal Lab Results - Last 24 Hours (Table) 01/21/23 01/21/23 Range/Units 08:12 08:12 WBC 18.8 H (3.8-10.6) k/uL RBC 3.68 L (4.30-5.90) m/uL Hgb 9.6 L (13.0-17.5) gm/dL Hct 28.5 L (39.0-53.0) % MCV 77.6 L (80.0-100.0) fL Plt Count 493 H (150-450) k/uL Sodium 136 L (137-145) mmol/L Potassium 3.3 L (3.5-5.1) mmol/L Chloride 108 H (98-107) mmol/L Carbon Dioxide 18 L (22-30) mmol/L BUN 24 H (9-20) mg/dL Creatinine 1.77 H (0.66-1.25) mg/dL Glucose 110 H (74-99) mg/dL Calcium 7.6 L (8.4-10.2) mg/dL AST 14 L (17-59) U/L Alkaline Phosphatase 174 H (38-126) U/L C-Reactive Protein 21.9 H (<1.0) mg/dL Total Protein 4.4 L (6.3-8.2) g/dL Albumin 2.2 L (3.5-5.0) g/dL Microbiology - Last 24 Hours (Table) 01/18/23 11:45 Blood Culture - Preliminary Blood 01/18/23 11:30 Blood Culture - Preliminary Blood 01/18/23 11:45 Gram Stain - Preliminary Knee - Left Wound Culture - Preliminary Strep A Assessment and Plan (1) Left leg cellulitis Current Visit: Yes Status: Acute Code(s): L03.116 - CELLULITIS OF LEFT LOWER LIMB SNOMED Code(s): 08517185869075294 Plan: 1patient present to hospital increasing pain swelling redness to the left lower extremity which is concentrated mostly below the left knee area with a question of possible left knee septic prepatellar bursitis previous history of MRSA infection 2-local culture has been growing group A streptococcus 3We will discontinue cefepime and vancomycin and start the patient on cefazolin and clindamycin and monitor clinical course closely Dictation was produced using [employer] [place] dictation software. please excuse any grammatical, word or spelling errors. Time with Patient: Less than 30
[2023-01-21] MEDS: AMIODARONE 450 MG in DEXTROSE 5% IN WATER 250 ML IV SCH ×2 (17:45)
[2023-01-21] MEDS: CLINDAMYCIN 900 MG in DEXTROSE 5% IN WATER 50 ML IVPB SCH ×2 (17:46)
[2023-01-21 19:59] LABS: Erythrocyte Sedimentation Rate 82 mm/Hr (0-20)
[2023-01-21] MEDS: DILTIAZEM 125 MG in SODIUM CHLORIDE 0.9% 100 ML IV SCH (22:51)
[2023-01-22] MEDS: CLINDAMYCIN 900 MG in DEXTROSE 5% IN WATER 50 ML IVPB SCH ×6 (00:25→16:11)
[2023-01-22] MEDS: IPRATROPIUM-ALBUTEROL 3 ML NEB INHALATION SCH ×3 (07:55→21:05)
[2023-01-22] MEDS: NICOTINE 21MG/24HR PATCH TRANSDERM SCH (09:17)
[2023-01-22] MEDS: METOPROLOL TARTRATE 50 MG TAB PO SCH ×2 (09:17→20:34)
[2023-01-22] MEDS: HYDROcodone/APAP 5-325MG 1 EACH TAB PO PRN ×3 (09:17→20:33)
[2023-01-22] MEDS: APIXABAN 5 MG TAB PO SCH ×2 (09:17→20:34)
[2023-01-22 09:47] LABS: Basophils % (A) 0 %; Eosinophils # (A) 0.2 k/uL (0-0.7); Eosinophils % (A) 2 %; HCT 29.2 % (39.0-53.0); HGB 9.8 gm/dL (13.0-17.5); Lymphocytes # (A) 0.9 k/uL (1.0-4.8); Lymphocytes % (A) 7 %; MCH 25.9 pg (25.0-35.0); MCHC 33.6 g/dL (31.0-37.0); MCV 77.1 fL (80.0-100.0); Mean Platelet Volume 6.9; Microcytosis Slight; Monocytes # (A) 0.5 k/uL (0-1.0); Monocytes % (A) 4 %; Neutrophils # (A) 12.1 k/uL (1.3-7.7); Neutrophils % (A) 87 %; Platelet Count 476 k/uL (150-450); RBC 3.79 m/uL (4.30-5.90); RDW 15.1 % (11.5-15.5); WBC 13.9 k/uL (3.8-10.6)
[2023-01-22 10:04] LABS: African American GFR (CKD) 45 (>60 ml/min/1.73 sqM); Anion Gap 13 mmol/L; Blood Urea Nitrogen 27 mg/dL (9-20); Calcium 7.8 mg/dL (8.4-10.2); Carbon Dioxide 20 mmol/L (22-30); Chloride 103 mmol/L (98-107); Glucose 167 mg/dL (74-99); Non-African American GFR(CKD) 39 (>60 ml/min/1.73 sqM); Potassium 3.3 mmol/L (3.5-5.1); Sodium 136 mmol/L (137-145)
[2023-01-22] MEDS ORDERED: POTASSIUM CHLORIDE ER 20 MEQ TAB.ER PO STA (11:01)
--- NOTE | 2023-01-22 11:14 | P.PN ---
Subjective Progress Note Date: 01/22/23 Hospital Course: Patient is a very pleasant 62-year-old male with a past medical history of hypertension, hyperlipidemia, multiple CVAs with no residual deficits followed by loop recorder placement in 2011, and nicotine dependence. Patient presented to the emergency department secondary to left lower extremity pain, swelling, and concerns of infection. Upon arrival to our facility patient's initial set of vitals were as follows blood pressure 129/66, heart rate 80, respiratory rate 18, temp 98.0F, SpO2 of 90% on room air. Shortly after arrival patient became tachycardic and was found to be in new-onset atrial fibrillation with RVR. EKG was completed confirming atrial fibrillation with RVR at [address] depression in inferior lateral leads and right bundle branch block upon personal review and interpretation. No previous EKGs available for comparison. Chest x-r ay completed negative for acute cardiopulmonary process. Labs completed and reviewed showing microcytic anemia with hemoglobin of 10.6 and severe leukocytosis with left shift with WBC count of 26.1, neutrophils of 23.4, and monocytes of 1.04. Coagulation profile showing low PT of 9.8 and elevated PTT of 30.7. BMP revealing hypokalemia with potassium of 3.3, hypocarbia with bicarb of 20, and elevated renal function with BUN of 31, creatinine 1.87, and GFR of 38 with unknown baseline levels. Liver profile showing elevated alkaline phosphatase of 171. Troponin 0.015. Lactic acid was normal findings at 1.1. CRP was significantly elevated at 34.9 and ESR is still pending. Blood cultures and wound cultures were obtained and sent to lab for analysis. X-rays completed of right knee, tibia, and fibula showing no evidence of acute fracture revealing soft tissue swelling of prepatellar space correlating for cellulitis with severe end-stage left knee osteophytosis. Patient was started given sepsis bolus of 2 L 0.9% normal saline and started on IV antibiotics with vancomycin and cefepime for treatment of sepsis. He was then started on low intensity heparin infusion for anticoagulation for new onset atrial fibrillation with RVR and given a Cardizem bolus followed by Cardizem infusion for ventricular rate control. 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 Venous Doppler left lower extremity was completed and was negative, ruling out DVT. Echocardiogram completed showing slightly impaired EF of 45-50% with atrial enlargement, right ventricular enlargement, moderate pulmonary hypertension and mild to moderate mitral and tricuspid regurgitation. Patient was seen by orthopedic surgery who recommended no surgical intervention. Patient's wound cultures grew strep a. Infectious disease started the patient on cefazolin and clindamycin. Patient A. fib is not controlled. Cardiology started him on IV amiodarone and Cardizem drip. 01/22/2023: Patient states that his knee pain is improving significantly since admission. He states that he is not able to bend his knee without pain. 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 Likely brought on by sepsis. -Patient titrated off amiodarone drip and started on amiodarone 400 mg by mouth twice a day -Wean Cardizem drip as tolerated. Patient currently on Cardizem drip 5 mL an hour -Patient on metoprolol tartrate 150 mg by mouth twice a day -Patient started on Eliquis 5 mg by mouth twice a day Acute systolic heart failure with an EF of 45% -Echocardiogram completed showing slightly impaired EF of 45-50% with atrial enlargement, right ventricular enlargement, moderate pulmonary hypertension and mild to moderate mitral and tricuspid regurgitation. -Lasix when necessary -This morning patient denying any shortness of breath -Cardiology following Severe sepsis Left lower extremity cellulitis -I reviewed wound cultures grew Strep A - I plan infectious disease note started the patient on cefazolin and clindamycin -We'll need final antibiotic recommendations from infectious disease -Leukocytosis is improving and is 13 this morning Acute kidney injury, likely underlying chronic kidney disease stage III -Patient's creatinine increased slightly from 1.77->1.81 Microcytic anemia -Stable Hypertension Hyperlipidemia Previous CVAs Nicotine dependence Lisinopril held secondary to acute kidney injury and carvedilol discontinued. Continue with nicotine patch 21 mg daily. Recommend smoking cessation. Blood pressure control Hypokalemia -Potassium 3.3. Order placed for K Dur 40 mEq 1 dose Will repeat labs tomorrow and monitor for resolution of hypokalemia. Disposition: If patient's heart rate controlled off the Cardizem drip and infectious disease gives final antibiotic recommendations he can be discharged home in the next 24 hours. Objective - Vital Signs Vital signs: Vital Signs Temp 98.3 F 01/22/23 08:00 Pulse 76 01/22/23 08:10 Resp 17 01/22/23 08:00 BP 146/72 01/22/23 08:00 Pulse Ox 99 01/22/23 08:00 FiO2 Intake & Output 01/21/23 01/22/23 01/22/23 18:59 06:59 18:59 Intake Total 530 594.75 Output Total 2050 500 500 Balance -1520 94.75 -500 Weight 75.5 kg Intake: Intake, IV Titration 530 114.75 Amount Amiodarone 360 mg In 120 Dextrose 5% in Water 200 ml @ 1 MG/MIN 33.333 mls/ hr IV .Q6H ONE Rx#: [id number] Dextrose 5% in Water 100 100 ml @ 103 mls/hr IV .Q1H ONE with Amiodarone 150 mg Rx#:[id number] Diltiazem 125 mg In 114.75 Sodium Chloride 0.9% 100 ml @ 5 MG/HR 5 mls/hr IV .Q24H [facility] Rx#:[id number] Sodium Chloride 0.9% 1, 60 000 ml @ 100 mls/hr IV . Q10H [facility] Rx#:[id number] Vancomycin 1,250 mg In 250 Sodium Chloride 0.9% 250 ml @ 125 mls/hr IVPB Q24H [facility] Rx#:[id number] Oral 480 Output: Urine 0 500 500 Other: Voiding Method Toilet Toilet Urinal Urinal - Labs CBC & Chem 7: 01/22/23 09:10 01/22/23 09:10 Labs: Abnormal Lab Results - Last 24 Hours (Table) 01/21/23 01/22/23 01/22/23 Range/Units 08:12 09:10 09:10 WBC 13.9 H (3.8-10.6) k/uL RBC 3.79 L (4.30-5.90) m/uL Hgb 9.8 L (13.0-17.5) gm/dL Hct 29.2 L (39.0-53.0) % MCV 77.1 L (80.0-100.0) fL Plt Count 476 H (150-450) k/uL Neutrophils # 12.1 H (1.3-7.7) k/uL Lymphocytes # 0.9 L (1.0-4.8) k/uL ESR 82 H (0-20) mm/Hr Sodium 136 L (137-145) mmol/L Potassium 3.3 L (3.5-5.1) mmol/L Carbon Dioxide 20 L (22-30) mmol/L BUN 27 H (9-20) mg/dL Creatinine 1.81 H (0.66-1.25) mg/dL Glucose 167 H (74-99) mg/dL Calcium 7.8 L (8.4-10.2) mg/dL Microbiology - Last 24 Hours (Table) 01/18/23 11:45 Blood Culture - Preliminary Blood 01/18/23 11:30 Blood Culture - Preliminary Blood 01/18/23 11:45 Gram Stain - Final Knee - Left Wound Culture - Final Strep A
--- NOTE | 2023-01-22 11:47 | P.PN ---
Subjective Progress Note Date: 01/22/23 Principal diagnosis: Reason for follow-up is left lower extremity cellulitis Patient is a 62-year-old male with a past medical his significant for CVA TIA hypertension previous history of MRSA infection to the left knee patient presenting to the hospital with a left leg pain and swelling , patient been diagnosed with extensive left lower extremity cellulitis. On today's evaluation that is 01/22/2023, the patient continues to be afebrile , the patient is breathing comfortably on 2 L nasal cannula supplemental oxygen mention he did have some shortness of breath last point however the patient currently denies chest pain shortness of breath or cough , patient denies nausea/vomiting, no abdominal pain and no diarrhea has been reported by the nursing staff, the patient pain to the left lower extremity has decreased in intensity. Patient white count is down to 13.9, creatinine is 1.81, blood culture negative, local cultures growing group A strep Objective - Vital Signs Vital signs: Vital Signs Temp 98.3 F 01/22/23 08:00 Pulse 76 01/22/23 08:10 Resp 17 01/22/23 08:00 BP 146/72 01/22/23 08:00 Pulse Ox 99 01/22/23 08:00 FiO2 Intake & Output 01/21/23 01/22/23 01/22/23 18:59 06:59 18:59 Intake Total 530 594.75 Output Total 2050 500 500 Balance -1520 94.75 -500 Weight 75.5 kg Intake: Intake, IV Titration 530 114.75 Amount Amiodarone 360 mg In 120 Dextrose 5% in Water 200 ml @ 1 MG/MIN 33.333 mls/ hr IV .Q6H [facility] Rx#: [id number] Dextrose 5% in Water 100 100 ml @ 103 mls/hr IV .Q1H ONE with Amiodarone 150 mg Rx#:[id number] Diltiazem 125 mg In 114.75 Sodium Chloride 0.9% 100 ml @ 5 MG/HR 5 mls/hr IV .Q24H [facility] Rx#:[id number] Sodium Chloride 0.9% 1, 60 000 ml @ 100 mls/hr IV . Q10H [facility] Rx#:[id number] Vancomycin 1,250 mg In 250 Sodium Chloride 0.9% 250 ml @ 125 mls/hr IVPB Q24H [facility] Rx#:[id number] Oral 480 Output: Urine 0 500 500 Other: Voiding Method Toilet Toilet Urinal Urinal - Exam GENERAL DESCRIPTION: A middle-age male lying in bed in no distress RESPIRATORY SYSTEM: Unlabored breathing , clear to auscultation anteriorly HEART: S1 S2 regular rate and rhythm , ABDOMEN: Soft , no tenderness EXTREMITIES: Left lower extremity with swelling redness just below the knee area has slightly decreased did have some blistering just below the knee area - Labs CBC & Chem 7: 01/22/23 09:10 01/22/23 09:10 Labs: Abnormal Lab Results - Last 24 Hours (Table) 01/21/23 01/22/23 01/22/23 Range/Units 08:12 09:10 09:10 WBC 13.9 H (3.8-10.6) k/uL RBC 3.79 L (4.30-5.90) m/uL Hgb 9.8 L (13.0-17.5) gm/dL Hct 29.2 L (39.0-53.0) % MCV 77.1 L (80.0-100.0) fL Plt Count 476 H (150-450) k/uL Neutrophils # 12.1 H (1.3-7.7) k/uL Lymphocytes # 0.9 L (1.0-4.8) k/uL ESR 82 H (0-20) mm/Hr Sodium 136 L (137-145) mmol/L Potassium 3.3 L (3.5-5.1) mmol/L Carbon Dioxide 20 L (22-30) mmol/L BUN 27 H (9-20) mg/dL Creatinine 1.81 H (0.66-1.25) mg/dL Glucose 167 H (74-99) mg/dL Calcium 7.8 L (8.4-10.2) mg/dL Microbiology - Last 24 Hours (Table) 01/18/23 11:45 Blood Culture - Preliminary Blood 01/18/23 11:30 Blood Culture - Preliminary Blood 01/18/23 11:45 Gram Stain - Final Knee - Left Wound Culture - Final Strep A Assessment and Plan (1) Left leg cellulitis Current Visit: Yes Status: Acute Code(s): L03.116 - CELLULITIS OF LEFT LOWER LIMB SNOMED Code(s): 25470723485968538 Plan: 1patient present to hospital increasing pain swelling redness to the left lower extremity which is concentrated mostly below the left knee area with a question of possible left knee septic prepatellar bursitis previous history of MRSA infection 2-local culture has been growing group A streptococcus 3patient to continue with cefazolin and clindamycin and monitor clinical course closely Dictation was produced using [employer] dictation software. please excuse any grammatical, word or spelling errors. Time with Patient: Less than 30
--- NOTE | 2023-01-22 12:40 | P.PN ---
Subjective HISTORY OF PRESENT ILLNESS: This is a 62-year-old male with a history of hypertension, hyperlipidemia, CVA, and nicotine dependence. Patient is admitted to the hospital secondary to left lower extremity cellulitis. He has been evaluated by orthopedics with no plans for surgical intervention. Patient was also found to be in A. fib with RVR. The patient denied a history of atrial fibrillation. At the time of examinatio n, the patient remains in atrial for ablation with a heart rate in the 120s. He remains on IV heparin. He also remains on IV Cardizem at 5 mg an hour. 01/21/2023 Patient examined this morning at the bedside. Patient denies chest pain or pressure. He denies shortness of breath. He does report a frequent cough. The patient did receive a dose of IV Lasix yesterday afternoon. Telemetry reveals atrial fibrillation with a heart rate in the 130s. He remains on IV Cardizem at 5 mg an hour. Echocardiogram completed revealing ejection fraction 45-50% 01/22/2023 Patient examined this morning at the bedside. Patient denies chest pain or pressure. He denies shortness of breath. Telemetry reveals sinus mechanism. Blood pressure is elevated today with a systolic in the 140-150s. PHYSICAL EXAM: VITAL SIGNS: Reviewed. GENERAL: Well-developed in no acute distress. NECK: Supple. No JVD or thyromegaly LUNGS: Respirations even and unlabored. Lungs diminished bilaterally. HEART: Regular rate and rhythm. S1 and S2 heard. EXTREMITIES: Normal range of motion. No clubbing or cyanosis. Peripheral pulses intact. Left lower extremity with erythema and edema noted ASSESSMENT: Left lower extremity cellulitis Sepsis New-onset atrial fibrillation with RVR Acute kidney injury Hypertension Hyperlipidemia History of CVA with loop recorder insertion, performed in [place] a few years ago per patient Hypokalemia Nicotine dependence Acute heart failure with mildly reduced EF, 45% PLAN: Continue Eliquis Discontinue IV Cardizem Begin oral amiodarone 400 mg twice a day. Decrease to 200 mg twice a day after one week. Change metoprolol tartrate to 150 mg twice a day Repeat kidney function in AM. If creatinine remains stable, we will add low- dose losartan Further recommendations pending patient's course Nurse practitioner note has been reviewed by physician. Signing provider agrees with the documented findings, assessment, and plan of care. Objective - Vital Signs Vital signs: Vital Signs Temp 98.3 F 01/22/23 08:00 Pulse 72 01/22/23 12:20 Resp 17 01/22/23 08:00 BP 146/72 01/22/23 08:00 Pulse Ox 99 01/22/23 08:00 FiO2 Intake & Output 01/21/23 01/22/23 01/22/23 18:59 06:59 18:59 Intake Total 530 594.75 Output Total 2050 500 500 Balance -1520 94.75 -500 Weight 75.5 kg Intake: Intake, IV Titration 530 114.75 Amount Amiodarone 360 mg In 120 Dextrose 5% in Water 200 ml @ 1 MG/MIN 33.333 mls/ hr IV .Q6H [facility] Rx#: [id number] Dextrose 5% in Water 100 100 ml @ 103 mls/hr IV .Q1H [facility] with Amiodarone 150 mg Rx#:[id number] Diltiazem 125 mg In 114.75 Sodium Chloride 0.9% 100 ml @ 5 MG/HR 5 mls/hr IV .Q24H [facility] Rx#:[id number] Sodium Chloride 0.9% 1, 60 000 ml @ 100 mls/hr IV . Q10H [facility] Rx#:[id number] Vancomycin 1,250 mg In 250 Sodium Chloride 0.9% 250 ml @ 125 mls/hr IVPB Q24H [facility] Rx#:[id number] Oral 480 Output: Urine 0 500 500 Other: Voiding Method Toilet Toilet Urinal Urinal - Labs CBC & Chem 7: 01/22/23 09:10 01/22/23 09:10 Labs: Abnormal Lab Results - Last 24 Hours (Table) 01/21/23 01/22/23 01/22/23 Range/Units 08:12 09:10 09:10 WBC 13.9 H (3.8-10.6) k/uL RBC 3.79 L (4.30-5.90) m/uL Hgb 9.8 L (13.0-17.5) gm/dL Hct 29.2 L (39.0-53.0) % MCV 77.1 L (80.0-100.0) fL Plt Count 476 H (150-450) k/uL Neutrophils # 12.1 H (1.3-7.7) k/uL Lymphocytes # 0.9 L (1.0-4.8) k/uL ESR 82 H (0-20) mm/Hr Sodium 136 L (137-145) mmol/L Potassium 3.3 L (3.5-5.1) mmol/L Carbon Dioxide 20 L (22-30) mmol/L BUN 27 H (9-20) mg/dL Creatinine 1.81 H (0.66-1.25) mg/dL Glucose 167 H (74-99) mg/dL Calcium 7.8 L (8.4-10.2) mg/dL Microbiology - Last 24 Hours (Table) 01/18/23 11:45 Blood Culture - Preliminary Blood 01/18/23 11:30 Blood Culture - Preliminary Blood 01/18/23 11:45 Gram Stain - Final Knee - Left Wound Culture - Final Strep A
[2023-01-22] MEDS: AMIODARONE 200 MG TAB PO SCH ×2 (12:52→20:34)
[2023-01-22] MEDS: AMIODARONE 450 MG in DEXTROSE 5% IN WATER 250 ML IV SCH ×2 (13:19)
[2023-01-22] MEDS: MORPHINE SULFATE 4 MG/ML SYRINGE IV PRN (13:21)
[2023-01-22] MEDS ORDERED: METOPROLOL TARTRATE 50 MG TAB PO SCH (21:00)
[2023-01-23] MEDS: CLINDAMYCIN 900 MG in DEXTROSE 5% IN WATER 50 ML IVPB SCH ×8 (00:45→23:32)
[2023-01-23] MEDS: HYDROcodone/APAP 5-325MG 1 EACH TAB PO PRN ×3 (03:31→23:32)
[2023-01-23] MEDS: guaiFENesin 600 MG TABLET.ER PO PRN ×2 (04:31→18:27)
[2023-01-23] MEDS: IPRATROPIUM-ALBUTEROL 3 ML NEB INHALATION SCH ×3 (08:04→22:19)
--- NOTE | 2023-01-23 09:13 | P.PN ---
Subjective Progress Note Date: 01/23/23 Principal diagnosis: Cellulitis left lower extremity. This is a 62-year-old male with recent history of increased swelling and pain to the left knee. He states that he has had this issue in the past but has related the pain due to his severe arthritis in his left knee. He says he has had a MRSA infection in that knee in the past. He has history of knee surgeries when he was in high school for meniscal tears. He states that he has been evaluated recently for knee replacement. He states that over a week ago he began having increased redness and swelling to the anterior aspect of the knee which extended down into the lower leg. He was evaluated at [facility] on 01/16/2023 and he was transferred here for further evaluation and IV antibiotics. He was found to have a white blood cell count of 26.1 with elevated sed rate and CRP. He is admitted for IV antibiotics. We're consulted for orthopedic evaluation. 01/20/2023: The patient is stable from an orthopedic standpoint. He continues to have pain and swelling to the lower leg. He has no new complaints or concerns today. Vital signs are stable. 01/23/2023: The patient is stable from an orthopedic standpoint. He states that he has noticed improvement in his left lower leg swelling. He reports no fever or chills. His heart rate is coming down. Vital signs are stable. Objective - Vital Signs Vital signs: Vital Signs Temp 97.4 F L 01/23/23 03:41 Pulse 87 01/23/23 03:41 Resp 18 01/23/23 03:41 BP 159/81 01/23/23 03:41 Pulse Ox 100 01/23/23 03:41 FiO2 Intake & Output 01/22/23 01/23/23 01/23/23 18:59 06:59 18:59 Intake Total 900 Output Total 1250 1000 800 Balance -1250 -1000 100 Intake: Oral 900 Output: Urine 1250 1000 800 Other: Voiding Method Toilet Toilet Urinal Urinal - Exam Exam of the left lower leg is improved. There is less swelling and erythema to the lower leg. There is no knee effusion and minimal fluctuance to the prepatellar bursa. Healing open blisters to the anterior aspect with no active drainage. Full foot and ankle motion without difficulty. Neurovascular status to the lower extremity is intact. - Labs CBC & Chem 7: 01/22/23 09:10 01/22/23 09:10 Labs: Abnormal Lab Results - Last 24 Hours (Table) 01/22/23 01/22/23 Range/Units 09:10 09:10 WBC 13.9 H (3.8-10.6) k/uL RBC 3.79 L (4.30-5.90) m/uL Hgb 9.8 L (13.0-17.5) gm/dL Hct 29.2 L (39.0-53.0) % MCV 77.1 L (80.0-100.0) fL Plt Count 476 H (150-450) k/uL Neutrophils # 12.1 H (1.3-7.7) k/uL Lymphocytes # 0.9 L (1.0-4.8) k/uL Sodium 136 L (137-145) mmol/L Potassium 3.3 L (3.5-5.1) mmol/L Carbon Dioxide 20 L (22-30) mmol/L BUN 27 H (9-20) mg/dL Creatinine 1.81 H (0.66-1.25) mg/dL Glucose 167 H (74-99) mg/dL Calcium 7.8 L (8.4-10.2) mg/dL Assessment and Plan (1) Left leg cellulitis Current Visit: Yes Status: Acute Code(s): L03.116 - CELLULITIS OF LEFT LOWER LIMB SNOMED Code(s): 90353583984821347 (2) New onset atrial fibrillation Current Visit: Yes Status: Acute Code(s): I48.91 - UNSPECIFIED ATRIAL FIBRILLATION SNOMED Code(s): 34885184 Plan: The clinical and x-ray findings are discussed with the patient. Continue IV antibiotics and wound care per infectious disease. At this time we do not anticipate the need for surgical intervention. We will continue to follow peripherally.
[2023-01-23] MEDS: APIXABAN 5 MG TAB PO SCH ×2 (09:17→21:25)
[2023-01-23] MEDS: METOPROLOL TARTRATE 50 MG TAB PO SCH ×2 (09:17→21:25)
[2023-01-23] MEDS: NICOTINE 21MG/24HR PATCH TRANSDERM SCH (09:17)
[2023-01-23] MEDS: lisinopriL 10 MG TAB PO SCH (09:17)
[2023-01-23] MEDS: AMIODARONE 200 MG TAB PO SCH ×2 (09:17→21:25)
[2023-01-23] MEDS: MORPHINE SULFATE 4 MG/ML SYRINGE IV PRN ×3 (09:23→21:25)
[2023-01-23 09:34] LABS: Basophils % (A) 0 %; Eosinophils # (A) 0.3 k/uL (0-0.7); Eosinophils % (A) 2 %; HGB 9.9 gm/dL (13.0-17.5); Lymphocytes % (A) 7 %; MCH 26.6 pg (25.0-35.0); MCHC 34.3 g/dL (31.0-37.0); MCV 77.6 fL (80.0-100.0); Mean Platelet Volume 6.9; Microcytosis Slight; Monocytes # (A) 0.6 k/uL (0-1.0); Monocytes % (A) 4 %; Neutrophils % (A) 86 %; Platelet Count 506 k/uL (150-450); Poikilocytosis Slight; RBC 3.74 m/uL (4.30-5.90); RDW 15.5 % (11.5-15.5)
[2023-01-23 09:56] LABS: African American GFR (CKD) 41 (>60 ml/min/1.73 sqM); Anion Gap 9 mmol/L; Blood Urea Nitrogen 31 mg/dL (9-20); Calcium 7.8 mg/dL (8.4-10.2); Carbon Dioxide 23 mmol/L (22-30); Chloride 105 mmol/L (98-107); Glucose 103 mg/dL (74-99); Magnesium 1.9 mg/dL (1.6-2.3); Non-African American GFR(CKD) 36 (>60 ml/min/1.73 sqM); Potassium 3.7 mmol/L (3.5-5.1); Sodium 137 mmol/L (137-145)
--- NOTE | 2023-01-23 10:19 | P.PN ---
Subjective HISTORY OF PRESENT ILLNESS: This is a 62-year-old male with a history of hypertension, hyperlipidemia, CVA, and nicotine dependence. Patient is admitted to the hospital secondary to left lower extremity cellulitis. He has been evaluated by orthopedics with no plans for surgical intervention. Patient was also found to be in A. fib with RVR. The patient denied a history of atrial fibrillation. At the time of examinatio n, the patient remains in atrial for ablation with a heart rate in the 120s. He remains on IV heparin. He also remains on IV Cardizem at 5 mg an hour. 01/21/2023 Patient examined this morning at the bedside. Patient denies chest pain or pressure. He denies shortness of breath. He does report a frequent cough. The patient did receive a dose of IV Lasix yesterday afternoon. Telemetry reveals atrial fibrillation with a heart rate in the 130s. He remains on IV Cardizem at 5 mg an hour. Echocardiogram completed revealing ejection fraction 45-50% 01/22/2023 Patient examined this morning at the bedside. Patient denies chest pain or pressure. He denies shortness of breath. Telemetry reveals sinus mechanism. Blood pressure is elevated today with a systolic in the 140-150s. 01/23/2023 Patient examined this morning at the bedside. Patient denies chest pain or pressure. He denies shortness of breath. He remains in sinus mechanism at the time of examination. Patient's blood pressure remains elevated this morning with a systolic in the 150s. PHYSICAL EXAM: VITAL SIGNS: Reviewed. GENERAL: Well-developed in no acute distress. NECK: Supple. No JVD or thyromegaly LUNGS: Respirations even and unlabored. Lungs diminished bilaterally. HEART: Regular rate and rhythm. S1 and S2 heard. EXTREMITIES: Normal range of motion. No clubbing or cyanosis. Peripheral pulses intact. Left lower extremity with erythema and edema noted ASSESSMENT: Left lower extremity cellulitis Sepsis New-onset atrial fibrillation with RVR Acute kidney injury Hypertension Hyperlipidemia History of CVA with loop recorder insertion, performed in [place] a few years ago per patient Hypokalemia Nicotine dependence Acute heart failure with mildly reduced EF, 45% PLAN: Continue Eliquis Continue current cardiac medications Add lisinopril 10 mg daily. Continue to monitor kidney function Patient is currently stable from a cardiac perspective Further recommendations pending patient's course Nurse practitioner note has been reviewed by physician. Signing provider agrees with the documented findings, assessment, and plan of care. Objective - Vital Signs Vital signs: Vital Signs Temp 97.4 F L 01/23/23 03:41 Pulse 87 01/23/23 03:41 Resp 18 01/23/23 03:41 BP 159/81 01/23/23 03:41 Pulse Ox 100 01/23/23 03:41 FiO2 Intake & Output 01/22/23 01/23/23 01/23/23 18:59 06:59 18:59 Intake Total 900 Output Total 1250 1000 800 Balance -1250 -1000 100 Intake: Oral 900 Output: Urine 1250 1000 800 Other: Voiding Method Toilet Toilet Urinal Urinal - Labs CBC & Chem 7: 01/23/23 09:05 01/23/23 09:05 Labs: Abnormal Lab Results - Last 24 Hours (Table) 01/23/23 01/23/23 Range/Units 09:05 09:05 WBC 14.0 H (3.8-10.6) k/uL RBC 3.74 L (4.30-5.90) m/uL Hgb 9.9 L (13.0-17.5) gm/dL Hct 29.0 L (39.0-53.0) % MCV 77.6 L (80.0-100.0) fL Plt Count 506 H (150-450) k/uL Neutrophils # 12.0 H (1.3-7.7) k/uL BUN 31 H (9-20) mg/dL Creatinine 1.96 H (0.66-1.25) mg/dL Glucose 103 H (74-99) mg/dL Calcium 7.8 L (8.4-10.2) mg/dL
[2023-01-23 11:20] VITALS: BMI 26.0
--- NOTE | 2023-01-23 12:56 | P.PN ---
Subjective Progress Note Date: 01/23/23 Principal diagnosis: Reason for follow-up is left lower extremity cellulitis Patient is a 62-year-old male with a past medical his significant for CVA TIA hypertension previous history of MRSA infection to the left knee patient presenting to the hospital with a left leg pain and swelling , patient been diagnosed with extensive left lower extremity cellulitis. On today's evaluation that is 01/23/2023, the patient remains to be afebrile , the patient is breathing comfortably on room air and denies any shortness of breath, the patient denies chest pain or cough , patient denies abdominal pain, no nausea/vomiting and no diarrhea has been reported , the patient pain to the left lower extremity has decreased in intensity. Patient white count is slightly up to 14,000, creatinine is 1.96, blood culture negative, local cultures growing group A strep Objective - Vital Signs Vital signs: Vital Signs Temp 97.4 F L 01/23/23 03:41 Pulse 87 01/23/23 03:41 Resp 18 01/23/23 03:41 BP 159/81 01/23/23 03:41 Pulse Ox 100 01/23/23 03:41 FiO2 Intake & Output 01/22/23 01/23/23 01/23/23 18:59 06:59 18:59 Intake Total 900 Output Total 1250 1000 800 Balance -1250 -1000 100 Weight 75.5 kg Intake: Oral 900 Output: Urine 1250 1000 800 Other: Voiding Method Toilet Toilet Urinal Urinal - Exam GENERAL DESCRIPTION: A middle-age male lying in bed in no distress RESPIRATORY SYSTEM: Unlabored breathing , clear to auscultation anteriorly HEART: S1 S2 regular rate and rhythm , ABDOMEN: Soft , no tenderness EXTREMITIES: Left lower extremity with swelling redness just below the knee area has slightly decreased did have some blistering just below the knee area - Labs CBC & Chem 7: 01/23/23 09:05 01/23/23 09:05 Labs: Abnormal Lab Results - Last 24 Hours (Table) 01/23/23 01/23/23 Range/Units 09:05 09:05 WBC 14.0 H (3.8-10.6) k/uL RBC 3.74 L (4.30-5.90) m/uL Hgb 9.9 L (13.0-17.5) gm/dL Hct 29.0 L (39.0-53.0) % MCV 77.6 L (80.0-100.0) fL Plt Count 506 H (150-450) k/uL Neutrophils # 12.0 H (1.3-7.7) k/uL BUN 31 H (9-20) mg/dL Creatinine 1.96 H (0.66-1.25) mg/dL Glucose 103 H (74-99) mg/dL Calcium 7.8 L (8.4-10.2) mg/dL Assessment and Plan (1) Left leg cellulitis Current Visit: Yes Status: Acute Code(s): L03.116 - CELLULITIS OF LEFT LOWER LIMB SNOMED Code(s): 34778738755905958 Plan: 1patient present to hospital increasing pain swelling redness to the left lower extremity which is concentrated mostly below the left knee area with a question of possible left knee septic prepatellar bursitis previous history of MRSA infection 2-local culture has been growing group A streptococcus 3patient is slowly clinical improvement and will continue with cefazolin and clindamycin discharge antibiotics on the basis of coverage and clinical response over the next day or 2 Multiple questions and concerns were answered Dictation was produced using IRIS.TVation software. please excuse any grammatical, word or spelling errors. Time with Patient: Less than 30
--- NOTE | 2023-01-23 20:11 | P.PN ---
Subjective Progress Note Date: 01/23/23 Patient is a v 62-year-old male with hypertension, hyperlipidemia, multiple CVAs with no residual deficits followed by loop recorder placement in 2011, and nicotine dependence who presented to the emergency department due to left lower extremity pain, swelling, and concerns of infection. Intial vitals ere within normal, but shortly after arrival he was discovered to be in atrial fibrillation with RVR. Laboratory analysis was remarkable for hemoglobin of 10.6, WBC 26.1, potassium 3.3, bicarb of 20, BUN of 31, creatinine 1.87, CRP 34.9. X-rays completed of right knee, tibia, and fibula showing no evidence of acute fracture, but did reveal soft tissue swelling of prepatellar space correlating for cellulitis with severe end-stage left knee osteophytosis. He was started on IV fluids, vancomycin, and cefepime for cellulitis with sepsis. Due to his new onset A. fib he was started on a heparin and Cardizem drips. Patient was subsequently admitted with cardiology consultation. Orthopedic surgery was consulted for concerns of possible septic arthritis. Additional testing in cluded lower extremity venous Dopplers which were negative, echocardiogram which showed an ejection fraction of 45-50% and moderate pulmonary hypertension. Orthopedic surgery did not recommend surgical intervention to rule out septic arthritis. Infectious disease was consulted and the patient was transitioned to cefazolin and clindamycin. Patient's A. fib remained difficult to control subsequently started on IV amiodarone in addition to the Cardizem. He was transitioned to oral amio. Patient seen and examined at bedside. He has no complaints at this time. He denies any nausea, vomiting, or diarrhea. He states he does have some pain when up and walking but otherwise his knee is feeling okay. Vital signs reviewed General: [nontoxic], [no distress], [appears at stated age] Cardiovascular: [S1S2 reg], [no murmur], [positive posterior tibial pulse bilateral], Lungs: [CTA bilateral], [no rhonchi, no rales] , [no accessory muscle use] Abdominal: [soft], [ nontender to palpation], [no guarding], [no appreciable organomegaly] Ext: [no gross muscle atrophy], [no edema b/l lower extremities], [no contractures] Neuro: [ CN II-XI grossly intact], [no focal neuro deficits] Psych: [Alert], [oriented], [appropriate affect] Assessment/Plan: Left lower extremity cellulitis due to group A strep with severe sepsis -Infectious disease note reviewed, continue with cefazolin D #3 and clindamycin D #3 - Received 3 days of Cefepime -Cefazolin 2 g IV piggyback every 8 hours -Clindamycin 900 mg IV piggyback every 8 hours - ortho note reviewed: no need for surgical intervention -Case discussed with Dr. Rogers. Ideally patient should go home on IV antibiotics, he may need orals due to insurance issues. Case also discussed with care management team. New onset atrial fibrillation with rapid ventricular response New systolic cardiomyopathy with ejection fraction 45% [id number] score is 3 - Eliquis 5 mg BID - Amiodarone 400 mg PO BID, metoprolol 150 mg BID - Cardio note reviewed: decreased amio -Patient started on STEVIE inhibitor by cardiology on 01/23 anticipate mild increase in creatinine in AM. ZELDA HTN HLD Hx of CVA Hypokalemia Nicotine Dependency Imaging: None new Data Review: Labs reviewed from today include CBC and basic metabolic profile as well as magnesium which are remarkable for a white blood cell count of 14, hemoglobin 9.9, platelets 506, BUN 31, creatinine 1.96 DVT prophylaxis: Eliquis Anticipated discharge date: in 24-[address]: home This dictation was prepared using [employer] voice recognition software. Though every attempt is made to correct errors during dictation some may still exist. Objective - Vital Signs Vital signs: Vital Signs Temp 97.4 F L 01/23/23 03:41 Pulse 87 01/23/23 03:41 Resp 18 01/23/23 03:41 BP 159/81 01/23/23 03:41 Pulse Ox 100 01/23/23 03:41 FiO2 Intake & Output 01/22/23 01/23/23 01/23/23 18:59 06:59 18:59 Intake Total 450 Output Total 1250 1000 800 Balance -1250 -1000 -350 Intake: Oral 450 Output: Urine 1250 1000 800 Other: Voiding Method Toilet Toilet Urinal Urinal - Labs CBC & Chem 7: 01/23/23 09:05 01/23/23 09:05 Labs: Abnormal Lab Results - Last 24 Hours (Table) 01/22/23 01/22/23 Range/Units 09:10 09:10 WBC 13.9 H (3.8-10.6) k/uL RBC 3.79 L (4.30-5.90) m/uL Hgb 9.8 L (13.0-17.5) gm/dL Hct 29.2 L (39.0-53.0) % MCV 77.1 L (80.0-100.0) fL Plt Count 476 H (150-450) k/uL Neutrophils # 12.1 H (1.3-7.7) k/uL Lymphocytes # 0.9 L (1.0-4.8) k/uL Sodium 136 L (137-145) mmol/L Potassium 3.3 L (3.5-5.1) mmol/L Carbon Dioxide 20 L (22-30) mmol/L BUN 27 H (9-20) mg/dL Creatinine 1.81 H (0.66-1.25) mg/dL Glucose 167 H (74-99) mg/dL Calcium 7.8 L (8.4-10.2) mg/dL
[2023-01-24] MEDS: MORPHINE SULFATE 4 MG/ML SYRINGE IV PRN ×2 (06:13→10:17)
[2023-01-24] MEDS: IPRATROPIUM-ALBUTEROL 3 ML NEB INHALATION SCH ×3 (08:08→21:40)
[2023-01-24] MEDS: CLINDAMYCIN 900 MG in DEXTROSE 5% IN WATER 50 ML IVPB SCH ×4 (08:59→15:59)
[2023-01-24] MEDS: NICOTINE 21MG/24HR PATCH TRANSDERM SCH (08:59)
[2023-01-24] MEDS: APIXABAN 5 MG TAB PO SCH ×2 (08:59→20:50)
[2023-01-24] MEDS: lisinopriL 10 MG TAB PO SCH (08:59)
[2023-01-24] MEDS: AMIODARONE 200 MG TAB PO SCH ×2 (08:59→20:50)
[2023-01-24] MEDS: METOPROLOL TARTRATE 50 MG TAB PO SCH ×2 (08:59→20:50)
[2023-01-24] MEDS: hydrALAZINE HCL 50 MG TAB PO SCH ×2 (09:11→15:59)
[2023-01-24] MEDS ORDERED: lisinopriL 10 MG TAB PO STA (10:49)
--- NOTE | 2023-01-24 12:38 | P.PN ---
Subjective Progress Note Date: 01/24/23 Principal diagnosis: Reason for follow-up is left lower extremity cellulitis Patient is a 62-year-old male with a past medical his significant for CVA TIA hypertension previous history of MRSA infection to the left knee patient presenting to the hospital with a left leg pain and swelling , patient been diagnosed with extensive left lower extremity cellulitis. On today's evaluation that is 01/24/2023, the patient denies any fever or chills, the patient is breathing comfortably on room air and no need for any supplemental oxygen the patient denies chest pain shortness of breath or cough , patient nausea/vomiting, no abdominal pain, and no diarrhea , the patient pain to the left lower extremity has decreased in intensity, feeling better. Patient did have a white count of 14,000 and creatinine is 1.96 as of 01/23/2023, no labs from today, blood culture negative, local cultures growing group A strep Objective - Vital Signs Vital signs: Vital Signs Temp 97.5 F L 01/24/23 11:30 Pulse 63 01/24/23 11:30 Resp 18 01/24/23 11:30 BP 167/87 01/24/23 11:30 Pulse Ox 98 01/24/23 11:30 FiO2 Intake & Output 01/23/23 01/24/23 01/24/23 18:59 06:59 18:59 Intake Total 1250 140 480 Output Total 1850 1475 Balance -600 -1335 480 Weight 75.5 kg Intake: IV 20 Invasive Line 2 10 Invasive Line 4 10 Oral 1250 120 480 Output: Urine 1850 1475 Other: Voiding Method Toilet Toilet Toilet Urinal Urinal Urinal - Exam GENERAL DESCRIPTION: A middle-age male lying in bed in no distress RESPIRATORY SYSTEM: Unlabored breathing , clear to auscultation anteriorly HEART: S1 S2 regular rate and rhythm , ABDOMEN: Soft , no tenderness EXTREMITIES: Left lower extremity with swelling redness just below the knee area has slightly decreased did have some blistering just below the knee area - Labs CBC & Chem 7: 01/23/23 09:05 01/23/23 09:05 Labs: Microbiology - Last 24 Hours (Table) 01/18/23 11:45 Blood Culture - Final Blood 01/18/23 11:30 Blood Culture - Final Blood Assessment and Plan (1) Left leg cellulitis Current Visit: Yes Status: Acute Code(s): L03.116 - CELLULITIS OF LEFT LOWER LIMB SNOMED Code(s): 17639678529057029 Plan: 1patient present to hospital increasing pain swelling redness to the left lower extremity which is concentrated mostly below the left knee area with a question of possible left knee septic prepatellar bursitis previous history of MRSA infection 2-local culture has been growing group A streptococcus 3patient did have some clinical improvement patient to continue with the current treatment of cefazolin and clindamycin , currently waiting for outpatient IV antibiotic coverage determination and monitor clinical course closely Dictation was produced using Swing[employer] dictation software. please excuse any grammatical, word or spelling errors. Time with Patient: Less than 30
--- NOTE | 2023-01-24 13:08 | P.PN ---
Subjective HISTORY OF PRESENT ILLNESS: This is a 62-year-old male with a history of hypertension, hyperlipidemia, CVA, and nicotine dependence. Patient is admitted to the hospital secondary to left lower extremity cellulitis. He has been evaluated by orthopedics with no plans for surgical intervention. Patient was also found to be in A. fib with RVR. The patient denied a history of atrial fibrillation. At the time of examinatio n, the patient remains in atrial for ablation with a heart rate in the 120s. He remains on IV heparin. He also remains on IV Cardizem at 5 mg an hour. 01/21/2023 Patient examined this morning at the bedside. Patient denies chest pain or pressure. He denies shortness of breath. He does report a frequent cough. The patient did receive a dose of IV Lasix yesterday afternoon. Telemetry reveals atrial fibrillation with a heart rate in the 130s. He remains on IV Cardizem at 5 mg an hour. Echocardiogram completed revealing ejection fraction 45-50% 01/22/2023 Patient examined this morning at the bedside. Patient denies chest pain or pressure. He denies shortness of breath. Telemetry reveals sinus mechanism. Blood pressure is elevated today with a systolic in the 140-150s. 01/23/2023 Patient examined this morning at the bedside. Patient denies chest pain or pressure. He denies shortness of breath. He remains in sinus mechanism at the time of examination. Patient's blood pressure remains elevated this morning with a systolic in the 150s. 01/24/2023 Patient examined this morning at the bedside. Patient denies chest pain or pressure. He denies shortness of breath. He remains in sinus mechanism at the time of examination. The patient's blood pressure remains elevated with a systolic in the 180s today. PHYSICAL EXAM: VITAL SIGNS: Reviewed. GENERAL: Well-developed in no acute distress. NECK: Supple. No JVD or thyromegaly LUNGS: Respirations even and unlabored. Lungs diminished bilaterally. HEART: Regular rate and rhythm. S1 and S2 heard. EXTREMITIES: Normal range of motion. No clubbing or cyanosis. Peripheral pulses intact. Left lower extremity with erythema and edema noted ASSESSMENT: Left lower extremity cellulitis Sepsis New-onset atrial fibrillation with RVR Acute kidney injury Hypertension Hyperlipidemia History of CVA with loop recorder insertion, performed in [place] a few years ago per patient Hypokalemia Nicotine dependence Acute heart failure with mildly reduced EF, 45% PLAN: Continue Eliquis Continue current cardiac medications Add hydralazine 50 mg 3 times a day for optimal blood pressure control Patient is currently stable from a cardiac perspective Further recommendations pending patient's course Nurse practitioner note has been reviewed by physician. Signing provider agrees with the documented findings, assessment, and plan of care. Objective - Vital Signs Vital signs: Vital Signs Temp 97.5 F L 01/24/23 11:30 Pulse 63 01/24/23 11:30 Resp 18 01/24/23 11:30 BP 167/87 01/24/23 11:30 Pulse Ox 98 01/24/23 11:30 FiO2 Intake & Output 01/23/23 01/24/23 01/24/23 18:59 06:59 18:59 Intake Total 1250 140 480 Output Total 1850 1475 Balance -600 -1335 480 Weight 75.5 kg Intake: IV 20 Invasive Line 2 10 Invasive Line 4 10 Oral 1250 120 480 Output: Urine 1850 1475 Other: Voiding Method Toilet Toilet Toilet Urinal Urinal Urinal - Labs CBC & Chem 7: 01/23/23 09:05 01/23/23 09:05 Labs: Microbiology - Last 24 Hours (Table) 01/18/23 11:45 Blood Culture - Final Blood 01/18/23 11:30 Blood Culture - Final Blood
--- NOTE | 2023-01-24 15:05 | P.PN ---
Subjective Progress Note Date: 01/24/23 (emerson charting seen at 1005) Patient is a v 62-year-old male with hypertension, hyperlipidemia, multiple CVAs with no residual deficits followed by loop recorder placement in 2011, and nicotine dependence who presented to the emergency department due to left lower extremity pain, swelling, and concerns of infection. Intial vitals ere within normal, but shortly after arrival he was discovered to be in atrial fibrillation with RVR. Laboratory analysis was remarkable for hemoglobin of 10.6, WBC 26.1, potassium 3.3, bicarb of 20, BUN of 31, creatinine 1.87, CRP 34.9. X-rays compl eted of right knee, tibia, and fibula showing no evidence of acute fracture, but did reveal soft tissue swelling of prepatellar space correlating for cellulitis with severe end-stage left knee osteophytosis. He was started on IV fluids, vancomycin, and cefepime for cellulitis with sepsis. Due to his new onset A. fib he was started on a heparin and Cardizem drips. Patient was subsequently admitted with cardiology consultation. Orthopedic surgery was consulted for concerns of possible septic arthritis. Additional testing included lower extremity venous Dopplers which were negative, echocardiogram which showed an ejection fraction of 45-50% and moderate pulmonary hypertension. Orthopedic surgery did not recommend surgical intervention to rule out septic arthritis. Infectious disease was consulted and the patient was transitioned to cefazolin and clindamycin. Patient's A. fib remained difficult to control subsequently started on IV amiodarone in addition to the Cardizem. He was transitioned to oral amio. He continued to do well. Patient seen and examined at bedside. He has no complaints at this time. Pain is well controlled. He is feeling slightly better every day. We did discuss and he has no insurance so therefore IV antibiotics or cost prohibitive. no nausea, vomiting, or diarrhea. Vital signs reviewed General: nontoxic, no distress, appears at stated age Cardiovascular: S1S2 reg, no murmur, positive posterior tibial pulse bilateral, Lungs: CTA bilateral, no rhonchi, no rales , no accessory muscle use Abdominal: soft, nontender to palpation, no guarding, no appreciable organomegaly Ext: no gross muscle atrophy, Left LE with edema at night and erythema skin sloughing and warmth, no contractures Neuro: CN II-XI grossly intact, no focal neuro deficits Psych: Alert, oriented, appropriate affect Assessment/Plan: Left lower extremity cellulitis due to group A strep with severe sepsis CKD III , unknown baseline cr - case discussed with Dr. Rogers, plan will be for keflex 500 mg PO QID for 2 weeks. Will follow in office one insurance is established. -Cefazolin 2 g IV piggyback every 8 hours D #4 -Clindamycin 900 mg IV piggyback every 8 hours D #4 - Received 3 days of Cefepime - ortho note reviewed: no need for surgical intervention New onset atrial fibrillation with rapid ventricular response New systolic cardiomyopathy with ejection fraction 45% HTN [id number] score is 3 - Eliquis 5 mg BID - Amiodarone 400 mg PO BID, metoprolol 150 mg BID - Increase lisinopril to 20 mg daily given elevated BP. monito Cr closely. - Case discussed with cardio CARPENTER'S ASSISTANT. Plan for amio wean obtained and meds ordered for discharge. ZELDA HTN HLD Hx of CVA Hypokalemia Nicotine Dependency Imaging: None new Data Review: None new, repeat BMP now to assess renal fct given lisinopril increase. DVT prophylaxis: Eliquis Anticipated discharge date: in [address]: home This dictation was prepared using [employer]utor voice recognition software. Though every attempt is made to correct errors during dictation some may still exist. Objective - Vital Signs Vital signs: Vital Signs Temp 97.5 F L 01/24/23 11:30 Pulse 63 01/24/23 11:30 Resp 18 01/24/23 11:30 BP 167/87 01/24/23 11:30 Pulse Ox 98 01/24/23 11:30 FiO2 Intake & Output 01/23/23 01/24/23 01/24/23 18:59 06:59 18:59 Intake Total 1250 140 480 Output Total 1850 1475 Balance -600 -1335 480 Weight 75.5 kg Intake: IV 20 Invasive Line 2 10 Invasive Line 4 10 Oral 1250 120 480 Output: Urine 1850 1475 Other: Voiding Method Toilet Toilet Toilet Urinal Urinal Urinal - Labs CBC & Chem 7: 01/23/23 09:05 01/23/23 09:05 Labs: Microbiology - Last 24 Hours (Table) 01/18/23 11:45 Blood Culture - Final Blood 01/18/23 11:30 Blood Culture - Final Blood
[2023-01-24 16:50] LABS: African American GFR (CKD) 43 (>60 ml/min/1.73 sqM); Anion Gap 7 mmol/L; Blood Urea Nitrogen 32 mg/dL (9-20); Calcium 7.6 mg/dL (8.4-10.2); Carbon Dioxide 24 mmol/L (22-30); Chloride 101 mmol/L (98-107); Glucose 106 mg/dL (74-99); Non-African American GFR(CKD) 37 (>60 ml/min/1.73 sqM); Potassium 3.6 mmol/L (3.5-5.1); Sodium 132 mmol/L (137-145)
[2023-01-24 16:56] VITALS: TEMP 98
[2023-01-24 20:46] VITALS: RESP 16
[2023-01-24] MEDS: HYDROcodone/APAP 5-325MG 1 EACH TAB PO PRN (20:50)
[2023-01-25] MEDS: hydrALAZINE HCL 50 MG TAB PO SCH ×2 (00:23→08:39)
[2023-01-25] MEDS: CLINDAMYCIN 900 MG in DEXTROSE 5% IN WATER 50 ML IVPB SCH ×4 (00:23→08:39)
[2023-01-25] MEDS: IPRATROPIUM-ALBUTEROL 3 ML NEB INHALATION SCH (08:38)
[2023-01-25] MEDS: AMIODARONE 200 MG TAB PO SCH (08:39)
[2023-01-25] MEDS: METOPROLOL TARTRATE 50 MG TAB PO SCH (08:39)
[2023-01-25] MEDS: APIXABAN 5 MG TAB PO SCH (08:39)
[2023-01-25] MEDS: NICOTINE 21MG/24HR PATCH TRANSDERM SCH (08:40)
[2023-01-25 08:59] VITALS: BP 154/72; PULSE 71
[2023-01-25] MEDS ORDERED: lisinopriL 20 MG TAB PO SCH (09:00)
[2023-01-25 09:25] LABS: HCT 31.8 % (39.0-53.0); HGB 10.1 gm/dL (13.0-17.5); Hypochromasia Slight; MCH 24.8 pg (25.0-35.0); MCHC 31.8 g/dL (31.0-37.0); MCV 77.9 fL (80.0-100.0); Mean Platelet Volume 7.4; Microcytosis Slight; Platelet Count 511 k/uL (150-450); Poikilocytosis Slight; RBC 4.08 m/uL (4.30-5.90); RDW 15.9 % (11.5-15.5); WBC 13.4 k/uL (3.8-10.6)
[2023-01-25 09:50] LABS: African American GFR (CKD) 40 (>60 ml/min/1.73 sqM); Anion Gap 12 mmol/L; Blood Urea Nitrogen 30 mg/dL (9-20); Calcium 8.1 mg/dL (8.4-10.2); Carbon Dioxide 24 mmol/L (22-30); Chloride 99 mmol/L (98-107); Glucose 142 mg/dL (74-99); Non-African American GFR(CKD) 35 (>60 ml/min/1.73 sqM); Potassium 3.7 mmol/L (3.5-5.1); Sodium 135 mmol/L (137-145)
--- NOTE | 2023-01-25 11:35 | P.PN ---
Subjective Progress Note Date: 01/25/23 Principal diagnosis: Reason for follow-up is left lower extremity cellulitis Patient is a 62-year-old male with a past medical his significant for CVA TIA hypertension previous history of MRSA infection to the left knee patient presenting to the hospital with a left leg pain and swelling , patient been diagnosed with extensive left lower extremity cellulitis. On today's evaluation that is 01/25/2023, the patient remains to be afebrile, the patient is breathing comfortably on room air, the patient denies shortness of breath, chest pain and no cough , patient denies abdominal pain, no nausea/vomiting and no diarrhea has been reported, the patient pain to the left lower extremity has decreased in intensity, swelling redness has decreased patient is feeling better and wants to go home Patient did have a white count of 13.4 and creatinine is 1.99, blood culture negative, local cultures growing group A strep Objective - Vital Signs Vital signs: Vital Signs Temp 98 F 01/24/23 20:00 Pulse 71 01/25/23 08:37 Resp 16 01/25/23 08:37 BP 154/72 01/25/23 08:37 Pulse Ox 97 01/25/23 08:37 FiO2 Intake & Output 01/24/23 01/25/23 01/25/23 18:59 06:59 18:59 Intake Total 1220 598 Output Total 850 3050 1200 Balance 370 -7550 600 Intake: Intake, IV Titration 200 Amount Clindamycin 900 mg In 100 Dextrose 5% in Water 50 ml @ 50 mls/hr IVPB Q8HR [facility] Rx#:[id number] ceFAZolin 2 gm In Sodium 100 Chloride 0.9% 50 ml @ 100 mls/hr IVPB Q8HR [facility] Rx# :[id number] Oral 1020 598 Output: Urine 850 3050 1200 Other: Voiding Method Toilet Toilet Urinal Urinal - Exam GENERAL DESCRIPTION: A middle-age male lying in bed in no distress RESPIRATORY SYSTEM: Unlabored breathing , clear to auscultation anteriorly HEART: S1 S2 regular rate and rhythm , ABDOMEN: Soft , no tenderness EXTREMITIES: Left lower extremity with swelling redness just below the knee area has slightly decreased did have some blistering just below the knee area - Labs CBC & Chem 7: 01/25/23 08:04 01/25/23 08:04 Labs: Abnormal Lab Results - Last 24 Hours (Table) 01/24/23 01/25/23 01/25/23 Range/Units 15:55 08:04 08:04 WBC 13.4 H (3.8-10.6) k/uL RBC 4.08 L (4.30-5.90) m/uL Hgb 10.1 L (13.0-17.5) gm/dL Hct 31.8 L (39.0-53.0) % MCV 77.9 L (80.0-100.0) fL MCH 24.8 L (25.0-35.0) pg RDW 15.9 H (11.5-15.5) % Plt Count 511 H (150-450) k/uL Sodium 132 L 135 L (137-145) mmol/L BUN 32 H 30 H (9-20) mg/dL Creatinine 1.89 H 1.99 H (0.66-1.25) mg/dL Glucose 106 H 142 H (74-99) mg/dL Calcium 7.6 L 8.1 L (8.4-10.2) mg/dL Assessment and Plan (1) Left leg cellulitis Current Visit: Yes Status: Acute Code(s): L03.116 - CELLULITIS OF LEFT LOWER LIMB SNOMED Code(s): 96817038023030697 Plan: 1patient present to hospital increasing pain swelling redness to the left lower extremity which is concentrated mostly below the left knee area with a question of possible left knee septic prepatellar bursitis previous history of MRSA infection 2-local culture has been growing group A streptococcus 3patient did have some clinical improvement, white count is still elevated but trending down, patient to continue with the current treatment of cefazolin and clindamycin while waiting for the white count normalized before transition to oral antibiotics Dictation was produced using [employer] dictation software. please excuse any gramm atical, word or spelling errors. Time with Patient: Less than 30
--- NOTE | 2023-01-25 13:00 | P.DS ---
Providers Date of admission: 01/18/23 13:15 Expected date of discharge: 01/25/23 Attending physician: Asuncion Jerez MD Consults: 01/18/23 14:12 Consult Physician Urgent Consulting Provider: Hakeem Jarrett Consult Reason/Comments: New onset atrial fibrillation Do you want consulting provider notified?: Yes Consult Physician Urgent Consulting Provider: Yevgeniy Andrade Consult Reason/Comments: Left LE cellulitis/septic bursitis Do you want consulting provider notified?: Yes 01/18/23 14:22 Consult Physician Urgent Consulting Provider: Cruz Rogers Consult Reason/Comments: LLE cellulitis, sepsis Do you want consulting provider notified?: Yes Primary care physician: Stated None Hospital Course: Discharge Diagnosis: Left lower extremity cellulitis due to group A strep with severe sepsis CKD III , unknown baseline cr New onset atrial fibrillation with rapid ventricular response New systolic cardiomyopathy with ejection fraction 45% HTN ZELDA HTN HLD Hx of CVA Hypokalemia Nicotine Dependency Hospital Course: Patient is a v 62-year-old male with hypertension, hyperlipidemia, multiple CVAs with no residual deficits followed by loop recorder placement in 2011, and nicotine dependence who presented to the emergency department due to left lower extremity pain, swelling, and concerns of infection. Intial vitals ere within normal, but shortly after arrival he was discovered to be in atrial fibrillation with RVR. Laboratory analysis was remarkable for hemoglobin of 10.6, WBC 26.1, potassium 3.3, bicarb of 20, BUN of 31, creatinine 1.87, CRP 34.9. X-rays completed of right knee, tibia, and fibula showing no evidence of acute fracture, but did reveal soft tissue swelling of prepatellar space correlating for cellulitis with severe end-stage left knee osteophytosis. He was started on IV fluids, vancomycin, and cefepime for cellulitis with sepsis. Due to his new onset A. fib he was started on a heparin and Cardizem drips. Patient was subsequently admitted with cardiology consultation. Orthopedic surgery was consulted for concerns of possible septic arthritis. Additional testing included lower extremity venous Dopplers which were negative, echocardiogram which showed an ejection fraction of 45-50% and moderate pulmonary hypertension. Orthopedic surgery did not recommend surgical intervention to rule out septic arthritis. Infectious disease was consulted and the patient was transitioned to cefazolin and clindamycin. Patient's A. fib remained difficult to control subsequently started on IV amiodarone in addition to the Cardizem. He was transitioned to oral amio. He continued to do well. He continued to do well. He was unable to afford IV antibiotics with fissure will not be active until February 07. His white blood cell count improved and renal function remained stable. He was subsequently discharged home. Follow-up: He will establish care with Dr. Knott for primary care physician, he'll follow with Dr. Mejia in 4 weeks, Dr. Rogers in 2 weeks. He will complete a two-week course of Keflex. Additional medications include all of this, metoprolol, hydralazine, and amiodarone taper. Patient seen and examined at bedside. Doing well no complaints, has a blood pressure cuff at home. No nausea, vomiting, or diarrhea. All questions answered. Vital signs reviewed and stable. General: nontoxic, no distress, appears at stated age Cardiovascular: S1S2 reg, no murmur, positive posterior tibial pulse bilateral, Lungs: CTA bilateral, no rhonchi, no rales , no accessory muscle use Abdominal: soft, nontender to palpation, no guarding, no appreciable organomegaly Ext: no gross muscle atrophy, Left LE with edema at night and erythema skin sloughing no warmth Neuro: CN II-XI grossly intact, no focal neuro deficits Psych: Alert, oriented, appropriate affect A total of 37 minutes of time were spent preparing this complex discharge summary. Patient was discharged on 01/25/23 This dictation was prepared using makr voice recognition software. Though every attempt is made to correct errors during dictation some may still exist. Plan - Discharge Summary Discharge Rx Participant: No New Discharge Prescriptions: New Apixaban [Eliquis] 5 mg PO BID 30 Days #60 tab Metoprolol Tartrate [Lopressor] 150 mg PO BID #120 tablet HYDROcodone/APAP 5-325MG [[place] 5-325] 1 each PO Q4HR PRN #20 tab PRN Reason: Moderate Pain (Scale 4 To 6) hydrALAZINE HCL [Apresoline] 50 mg PO TID #90 tab Amiodarone [Cordarone] See Rx Instructions .ROUTE .COMPLEX #58 tab Continue Cephalexin [Keflex] 500 mg PO Q6H #56 cap lisinopriL [Zestril] 20 mg PO DAILY #30 tab Discontinued carvediloL [Coreg] 12.5 mg PO BID clindamycin HCL 300 mg PO Q6H Discharge Medication List Apixaban [Eliquis] 5 mg PO BID 30 Days #60 tab 01/20/23 [Rx] Amiodarone [Cordarone] See Rx Instructions .ROUTE .COMPLEX #58 tab 01/24/23 [Rx] Cephalexin [Keflex] 500 mg PO Q6H #56 cap 01/24/23 [Rx] HYDROcodone/APAP 5-325MG [[place] 5-325] 1 each PO Q4HR PRN #20 tab 01/24/23 [Rx] Metoprolol Tartrate [Lopressor] 150 mg PO BID #120 tablet 01/24/23 [Rx] hydrALAZINE HCL [Apresoline] 50 mg PO TID #90 tab 01/24/23 [Rx] lisinopriL [Zestril] 20 mg PO DAILY #30 tab 01/24/23 [Rx] Follow up Appointment(s)/Referral(s): Bruce Lara MD [STAFF PHYSICIAN] - 4 Weeks (Please call office on Friday to schedule appointment) Arsen Knott MD [REFERRING] - 1 Week (A primary care physician. Please call to schedule appointment) Cruz Rogers MD [STAFF PHYSICIAN] - 2 Weeks (after february 07) Patient Instructions/Handouts: Heart Failure (DC), Safe Use of Anticoagulants (DC) Activity/Diet/Wound Care/Special Instructions: Activity: As tolerated Diet: Heart Healthy 2 gram sodium diet Special Instructions: Take Blood Pressure daily and make a log. Take a probiotic daily until you complete your antibiotics. Return with worsening redness, swelling, fevers, diarrhea. Discharge Disposition: HOME SELF-CARE
--- NOTE | 2023-01-25 13:15 | P.PN ---
Subjective Progress Note Date: 01/25/23 This is Reginaldo Sepulveda NP, I'm dictating on behalf of Dr. Lara's H&P and A&P. Patient was interviewed and examined. Patient is a pleasant 62-year-old male we were consulted on for new onset atrial fibrillation. Patient is currently on amiodarone, Eliquis, metoprolol, and lisinopril. Hydralazine was added yesterday due to increased blood pressures. His blood pressures are better today. Patient reports today that he is feeling relatively okay. He currently denies chest pain, shortness of breath and heart palpitations. GENERAL: Well-appearing, well-nourished and in no acute distress. NECK: Supple without JVD or thyromegaly. LUNGS: Breath sounds clear to auscultation bilaterally. Respiration equal and unlabored. No wheezes, rales or rhonchi. HEART: Regular rate and rhythm without murmurs, rubs or gallops. S1 and S2 heard. EXTREMITIES: Normal range of motion, no edema. No clubbing or cyanosis. Peripheral pulses intact and strong. VITALS: Temp 98.0, pulse 71, respirations 16, blood pressure 154/72, O2 saturation 97% on room air TELEMETRY: Normal sinus rhythm LABS: White count 13.4, hemoglobin 10.1, platelets 511, sodium 135, potassium 3.7, BUN 30, creatinine 1.99, calcium 8.1 IMPRESSION: 1. New onset atrial fibrillation with RVR 2. Left lower extremity cellulitis 3. Sepsis 4. Hypertension 5. Hyperlipidemia 6. History of CVA with loop recorder insertion 7. Hypokalemia 8. Nicotine dependence 9. Acute heart failure with mildly reduced EF at 45% PLAN: Continue hydralazine. Continue other cardiac medications. Patient is currently stable from a cardiac standpoint, and cleared. Thank you for allowing us to participate in the care of this patient. Objective - Vital Signs Vital signs: Vital Signs Temp 98 F 01/24/23 20:00 Pulse 71 01/25/23 08:37 Resp 16 01/25/23 08:37 BP 154/72 01/25/23 08:37 Pulse Ox 97 01/25/23 08:37 FiO2 Intake & Output 01/24/23 01/25/23 01/25/23 18:59 06:59 18:59 Intake Total 1220 598 Output Total 850 3050 1200 Balance 115 -6869 -913 Intake: Intake, IV Titration 200 Amount Clindamycin 900 mg In 100 Dextrose 5% in Water 50 ml @ 50 mls/hr IVPB Q8HR [facility] Rx#:[id number] ceFAZolin 2 gm In Sodium 100 Chloride 0.9% 50 ml @ 100 mls/hr IVPB Q8HR [facility] Rx# :[id number] Oral 1020 598 Output: Urine 850 3050 1200 Other: Voiding Method Toilet Toilet Urinal Urinal - Labs CBC & Chem 7: 01/25/23 08:04 01/25/23 08:04 Labs: Abnormal Lab Results - Last 24 Hours (Table) 01/24/23 01/25/23 01/25/23 Range/Units 15:55 08:04 08:04 WBC 13.4 H (3.8-10.6) k/uL RBC 4.08 L (4.30-5.90) m/uL Hgb 10.1 L (13.0-17.5) gm/dL Hct 31.8 L (39.0-53.0) % MCV 77.9 L (80.0-100.0) fL MCH 24.8 L (25.0-35.0) pg RDW 15.9 H (11.5-15.5) % Plt Count 511 H (150-450) k/uL Sodium 132 L 135 L (137-145) mmol/L BUN 32 H 30 H (9-20) mg/dL Creatinine 1.89 H 1.99 H (0.66-1.25) mg/dL Glucose 106 H 142 H (74-99) mg/dL Calcium 7.6 L 8.1 L (8.4-10.2) mg/dL
--- NOTE | 2023-01-27 09:09 | CDI ---
Documentation Clarification Form Date: 01/24/2023 05:55:00 PM From: Denise Monroe RN, CCDS Admit Date: 01/18/2023 01:15:00 PM Patient Name: Vitor Ann Visit Number: [id number] Discharge Date: 01/25/2023 12:19:00 PM ATTENTION: The Clinical Documentation Specialists (CDI) and [facility] Coding Staff appreciate your assistance in clarifying documentation. Please respond to the clarification below the line at the bottom and electronically sign. The CDI & [facility] Coding staff will review the response and follow-up if needed. Please note: Queries are made part of the Legal Health Record. If you have any questions, please contact the author of this message via ITS. Dr. Bruce Lara Patient admitted on 01/18/2023 with Atrial Fibrillation and cardiology consult on 01/19/23 and subsequent progress notes for treatment/management of new onset atrial fibrillation wIth RVR. Additional clarification regarding the type of atrial fibrillation is requested. History/Risk Factors: CVA/TIA, Hypertension, Current every day smoker Clinical Indicators: 62-year-old male who presents to the emergency department for left leg pain and swelling EKG/telemetry: Atrial Fibrillation with rapid ventricular response rate 151 poorly-controlled ventricular rate and right bundle-branch block and left anterior fascicular block. 01/18 (13:20)vs 109/76 135 16 96% RA 01/21 (08:00) 161/90 135 16 99.0 95% ra Treatment: Cardiac/Telemetry monitoring IV Heparin Drip per orders Eliquis 5 mg PO BID 01/20-01/25 Cardizem 20 mg iv once then Drip per orders Amiodarone 360 MG IV (titrate per orders) 01/21 change to 400 MG PO 01/22-01/25 Please clarify the type of atrial fibrillation, if known: [ ] Chronic [ ] Permanent [ ] Paroxysmal [ ] Persistent [ ] Other, please specify [ xx] Unable to determine (Template Last Revised: July 2020) Unable to determine the type of atrial fibrillation at this point [facility]
== END 2023-01-25 12:19 | disposition home or self-care (01) | DRG 871 ==
LOC: EC 11:01 → 3SCARD 13:15
PROVIDERS: ADMIT Family Medicine; ATTEND Family Medicine
DX: A40.0 Sepsis due to streptococcus, group A (principal); I50.21 Acute systolic (congestive) heart failure; L03.116 Cellulitis of left lower limb; N17.9 Acute kidney failure, unspecified; I42.8 Other cardiomyopathies; I45.2 Bifascicular block; I13.0 Hypertensive heart and chronic kidney disease with heart failure and stage 1 through stage 4 chronic kidney disease, or unspecified chronic kidney disease; R65.20 Severe sepsis without septic shock; Z28.310 Unvaccinated for COVID-19; Z28.21 Immunization not carried out because of patient refusal; N18.30 Chronic kidney disease, stage 3 unspecified; M25.762 Osteophyte, left knee; I27.20 Pulmonary hypertension, unspecified; I48.91 Unspecified atrial fibrillation; D50.9 Iron deficiency anemia, unspecified; E78.5 Hyperlipidemia, unspecified; E87.6 Hypokalemia; F17.210 Nicotine dependence, cigarettes, uncomplicated; I08.1 Rheumatic disorders of both mitral and tricuspid valves; M17.12 Unilateral primary osteoarthritis, left knee; R79.1 Abnormal coagulation profile; Z79.01 Long term (current) use of anticoagulants; Z79.899 Other long term (current) drug therapy; Z86.14 Personal history of Methicillin resistant Staphylococcus aureus infection; Z86.73 Personal history of transient ischemic attack (TIA), and cerebral infarction without residual deficits; Z96.652 Presence of left artificial knee joint; Z79.2 Long term (current) use of antibiotics; Z88.2 Allergy status to sulfonamides; Z71.3 Dietary counseling and surveillance
CPT/HCPCS: 36415; 71045; 71046; 80048; 80053; 80202; 83605; 83735; 83880; 84443; 84484; 85025; 85027; 85610; 85652; 85730; 86140; 87040; 87070; 87077; 87186; 87205; 93005; 93306; 94640; 94760; 96365; 96366; 96367; 96368; 96375; 99285